=== PATIENT | male | born 1980 | race Asian ===

== ENCOUNTER → 2017-02-09 | Outpatient (REF) | payer OTHER ==
[~2017-02-09] MED LIST: BUPR10TASR PO; GABA-279 PO; OMEP40CA2 PO; ONDA4TAB6 PO; PERC5TAB12 PO
[2017-02-09 11:57] LABS: MEAN CORPUSCULAR HEMOGLOBIN 30.8 pg (27.0-33.0); MEAN CORPUSCULAR HGB CONC 33.3 g/dl (32.0-36.5); MEAN CORPUSCULAR VOLUME 92.4 fl (80.0-96.0); RED CELL DISTRIBUTION WIDTH 12.5 % (11.5-14.5); WHITE BLOOD COUNT 6.7 10^3/uL (4.0-10.0)
[2017-02-09 12:21] LABS: VITAMIN B12 LEVEL 489 PG/ML (247-911)
[2017-02-09 12:33] LABS: ALBUMIN 3.7 GM/DL (3.2-5.2); ALBUMIN/GLOBULIN RATIO 1.03 (1.00-1.93); ALKALINE PHOSPHATASE 85 U/L (45-117); ALT/SGPT 39 U/L (12-78); ANION GAP 5 MEQ/L (8-16); AST/SGOT 24 U/L (15-37); BILIRUBIN,TOTAL 0.3 MG/DL (0.2-1.0); BLOOD UREA NITROGEN 14 MG/DL (7-18); CALCIUM LEVEL 9.2 MG/DL (8.5-10.1); CARBON DIOXIDE LEVEL 32 MEQ/L (21-32); CHLORIDE LEVEL 103 MEQ/L (98-107); CREATININE FOR GFR 0.84 MG/DL (0.70-1.30); GLOMERULAR FILTRATION RATE > 60.0 (>60); GLUCOSE, FASTING 100 MG/DL (70-105); POTASSIUM SERUM 4.6 MEQ/L (3.5-5.1); SODIUM LEVEL 140 MEQ/L (136-145); TOTAL PROTEIN 7.3 GM/DL (6.4-8.2)
== END ==
LOC: M SFHCLERA 09:07
PROVIDERS: ATTEND Physician Assistant
DX: R19.7 Diarrhea, unspecified (principal); R20.2 Paresthesia of skin

== ENCOUNTER → 2017-02-20 | Outpatient (CLI) | payer OTHER ==
--- NOTE | 2017-02-21 05:00 | REP ---
Clinical: Lower extremity paresthesia. Technique: AP, lateral, bilateral oblique and coned-down views of the lumbosacral spine. Findings: No acute fracture / compression injury or subluxation. Alignment is maintained. No significant degenerative disc osteophyte complexes are appreciated. Impression: Age-appropriate lumbosacral spine radiograph series. If the patient remains symptomatic consider MRI for further investigation. Signed by Ramos Nagy MD 02/21/2017 04:52 A
== END ==
LOC: M SMT 13:25
PROVIDERS: ATTEND Physician Assistant Medical
DX: R20.2 Paresthesia of skin (principal)

== ENCOUNTER → 2017-03-16 | Outpatient (CLI) | payer OTHER ==
--- NOTE | 2017-03-16 18:40 | REP ---
MRI LUMBAR SPINE WITHOUT CONTRAST: HISTORY: Paraesthesia. There is no disc bulge or herniation at the L1-2 through L3-4 and L5-S1 levels. The nerves exit the neural foramina without compression. There is partial sacralization of the vertebral body. A diffuse disc bulge is present at the L4-5 level. There is minimal compression of the thecal sac. The L4 nerves exit the neural foramina without compression. The conus medullaris is normal in appearance terminating at the level of the T12-L1 intervertebral discs. Normal signal intensity is present in the lumbar intervertebral discs and vertebral bodies. IMPRESSION: Diffuse disc bulge at the L4-5 level with minimal thecal sac compression. Signed by Sky Kerr MD 03/16/2017 07:10 P
== END ==
LOC: M RAD 16:02
PROVIDERS: ATTEND Physician Assistant Medical
DX: R20.2 Paresthesia of skin (principal); M51.36 Other intervertebral disc degeneration, lumbar region

== ENCOUNTER → 2017-03-21 | Outpatient (CLI) | payer OTHER ==
[~2017-03-21] MED LIST changes: +PROHANCE 279.3MG/ML 15ML VIAL (A9576) As Ordered ONE; +PROHANCE 279.3MG/ML 5ML VIAL (A9576) As Ordered ONE
--- NOTE | 2017-03-21 19:46 | REP ---
MR BRAIN WITHOUT AND WITH CONTRAST: HISTORY: Distal paresthesia. CONTRAST: ProHance 20 mL. COMPARISON: 03/03/2017 There are no areas of abnormal signal intensity in the brain. There is no intraparenchymal hemorrhage, infarct, mass or midline shift. The sella turcica is partially empty. There is no abnormal enhancement. The ventricular system is normal in appearance. There is no extracerebral collection. The sinuses are clear. IMPRESSION: There is no intracranial lesion. Signed by Sky Kerr MD 03/21/2017 07:53 P
== END ==
LOC: M RAD 16:52
PROVIDERS: ATTEND Physician Assistant Medical
DX: R20.2 Paresthesia of skin (principal)
CPT/HCPCS: 70553; A9576

== ENCOUNTER → 2017-04-06 | Outpatient (REF) | payer OTHER ==
[~2017-04-06] MED LIST changes: -PROHANCE 279.3MG/ML 15ML VIAL (A9576) As Ordered ONE; -PROHANCE 279.3MG/ML 5ML VIAL (A9576) As Ordered ONE
[2017-04-06 13:37] LABS: BASO % 0.4 % (0.0-1.0); EOS # 0.1 10^3/uL (0.0-0.50); EOS % 1.8 % (0.0-3.0); IMMATURE GRANULOCYTE % 0.5 % (0-0); LYMPH # 2.3 10^3/uL (1.5-4.5); LYMPH % 39.7 % (24.0-44.0); MEAN CORPUSCULAR HEMOGLOBIN 31.3 pg (27.0-33.0); MEAN CORPUSCULAR HGB CONC 32.8 g/dl (32.0-36.5); MEAN CORPUSCULAR VOLUME 95.4 fl (80.0-96.0); MONO # 0.7 10^3/uL (0.0-0.8); MONO % 12.7 % (0.0-5.0); NEUTROPHILS # 2.6 10^3/uL (1.8-7.7); NEUTROPHILS % 44.9 % (36.0-66.0); PLATELET COUNT, AUTOMATED 235 10^3/uL (150-450); RED CELL DISTRIBUTION WIDTH 13.2 % (11.5-14.5); WHITE BLOOD COUNT 5.7 10^3/uL (4.0-10.0)
[2017-04-06 14:06] LABS: ERYTHROCYTE SEDIMENTATION RATE 10 mm/hr (0-15)
== END ==
LOC: M SFHCPLAZ 12:02
PROVIDERS: ATTEND Physician Assistant Medical
DX: E75.6 Lipid storage disorder, unspecified (principal); K12.0 Recurrent oral aphthae

== ENCOUNTER → 2017-04-26 | Outpatient (CLI) | payer OTHER | LOC: M PAIN 14:00 | DX: G89.29 Other chronic pain (principal); M12.9 Arthropathy, unspecified; K21.9 Gastro-esophageal reflux disease without esophagitis; F41.9 Anxiety disorder, unspecified; G47.33 Obstructive sleep apnea (adult) (pediatric); F43.10 Post-traumatic stress disorder, unspecified; E75.6 Lipid storage disorder, unspecified; Z79.899 Other long term (current) drug therapy; Z87.891 Personal history of nicotine dependence | CPT/HCPCS: G0463 ==

== ENCOUNTER → 2017-05-22 | Outpatient (CLI) | payer OTHER | LOC: M SLEEP 08:44 | DX: R55 Syncope and collapse (principal) ==

== ENCOUNTER → 2017-05-24 | Outpatient (CLI) | payer OTHER | LOC: M PAIN 10:30 | DX: G89.29 Other chronic pain (principal); M12.9 Arthropathy, unspecified; K21.9 Gastro-esophageal reflux disease without esophagitis; F41.9 Anxiety disorder, unspecified; G47.33 Obstructive sleep apnea (adult) (pediatric); F43.10 Post-traumatic stress disorder, unspecified; Z79.891 Long term (current) use of opiate analgesic; Z79.899 Other long term (current) drug therapy; Z87.891 Personal history of nicotine dependence | CPT/HCPCS: G0463 ==

== ENCOUNTER → 2017-06-21 | Outpatient (CLI) | payer OTHER | LOC: M SLEEP 20:03 | DX: G47.30 Sleep apnea, unspecified (principal) | CPT/HCPCS: 95810 ==

== ENCOUNTER → 2017-06-25 | Outpatient (CLI) | payer OTHER | LOC: M PAIN 11:30 | DX: G89.29 Other chronic pain (principal); M12.9 Arthropathy, unspecified; K21.9 Gastro-esophageal reflux disease without esophagitis; F41.9 Anxiety disorder, unspecified; G47.33 Obstructive sleep apnea (adult) (pediatric); F43.10 Post-traumatic stress disorder, unspecified; Z79.891 Long term (current) use of opiate analgesic; Z87.891 Personal history of nicotine dependence | CPT/HCPCS: G0463 ==

== ENCOUNTER → 2017-08-01 | Outpatient (CLI) | payer OTHER | LOC: M SLEEP 19:49 | DX: G47.33 Obstructive sleep apnea (adult) (pediatric) (principal) | CPT/HCPCS: 95811 ==

== ENCOUNTER → 2017-08-06 | Outpatient (CLI) | payer OTHER | LOC: M PAIN 11:00 | DX: M12.9 Arthropathy, unspecified (principal); M25.50 Pain in unspecified joint; K21.9 Gastro-esophageal reflux disease without esophagitis; F41.9 Anxiety disorder, unspecified; G47.33 Obstructive sleep apnea (adult) (pediatric); F43.10 Post-traumatic stress disorder, unspecified; F17.228 Nicotine dependence, chewing tobacco, with other nicotine-induced disorders; Z79.891 Long term (current) use of opiate analgesic; Z79.899 Other long term (current) drug therapy | CPT/HCPCS: G0463 ==

== ENCOUNTER → 2017-08-22 | Outpatient (CLI) | payer OTHER ==
[2017-08-24 00:07] LABS: TISSUE TRANSGLUTAMINASE IgA <2 U/mL (0-3)
== END ==
LOC: M LAB 11:59
DX: R19.7 Diarrhea, unspecified (principal); R12 Heartburn
CPT/HCPCS: 82784

== ENCOUNTER 2017-08-24 11:45 | Day surgery (SDC) | payer OTHER ==
[2017-08-24] MEDS ORDERED: NS 1,000 ML IV (12:45)
[2017-08-24] MEDS ORDERED: LIDOCAINE 2% INJ 100 MG/5 ML SDV (FOR ANES.) As Ordered (13:08)
[2017-08-24] MEDS ORDERED: fentaNYL 100 MCG/2 ML INJECTION (J3010) As Ordered ×2 (13:08→17:07)
[2017-08-24] MEDS ORDERED: PROPOFOL 200 MG/20 ML VIAL As Ordered ×5 (13:08→17:06)
[2017-08-24] MEDS ORDERED: ONDANSETRON 4MG/2ML VIAL (J2405) As Ordered (17:06)
[2017-08-24] MEDS ORDERED: MIDAZOLAM INJ 2 MG/2 ML VIAL (J2250) As Ordered (17:06)
[2017-08-24] MEDS ORDERED: dexameTHASONE 4 MG/ML 1ML VIAL (J1100) As Ordered (17:06)
== END 2017-08-24 14:28 | disposition home or self-care (01) ==
LOC: M OPP 11:45
DX: R10.84 Generalized abdominal pain (principal); R10.13 Epigastric pain; R19.4 Change in bowel habit; M12.9 Arthropathy, unspecified; M35.00 Sjogren syndrome, unspecified; R51 Headache; F17.291 Nicotine dependence, other tobacco product, in remission; G47.30 Sleep apnea, unspecified; Z79.891 Long term (current) use of opiate analgesic; Z79.899 Other long term (current) drug therapy; Z83.3 Family history of diabetes mellitus; Z82.49 Family history of ischemic heart disease and other diseases of the circulatory system
CPT/HCPCS: 45378

== ENCOUNTER → 2017-09-19 | Outpatient (REF) | payer OTHER | LOC: M SMT 13:48 | DX: Z30.2 Encounter for sterilization (principal) | CPT/HCPCS: 88302 ==

== ENCOUNTER → 2017-10-02 | Outpatient (CLI) | payer OTHER ==
[2017-10-02 16:58] LABS: ESTIMATED AVERAGE GLUCOSE 108 MG/DL (60-110); HEMOGLOBIN A1c 5.4 %
[2017-10-02 17:11] LABS: FOLATE 19.9 NG/ML; VITAMIN B12 LEVEL 571 PG/ML
[2017-10-02 17:17] LABS: FREE T4 1.11 NG/DL (0.76-1.46); RHEUMATOID FACTOR QUANT < 10.0 IU/ML (<15.0); THYROID STIMULATING HORMONE 0.527 uIU/ML (0.358-3.740)
[2017-10-02 17:24] LABS: ERYTHROCYTE SEDIMENTATION RATE 7 mm/hr (0-15)
[2017-10-04 14:17] LABS: ANTINUCLEAR ANTIBODIES DIRECT Negative (Negative)
[2017-10-06 00:08] LABS: VITAMIN E(ALPHA TOCOPHEROL) 9.8 mg/L (5.9-19.4); VITAMIN E(GAMMA TOCOPHEROL) 1.9 mg/L (0.7-4.9)
[2017-10-09 00:07] LABS: VITAMIN B6,PYRIDOXAL PHOSPHATE 59.5 ug/L (5.3-46.7)
== END ==
LOC: M LAB 15:57
DX: E06.9 Thyroiditis, unspecified (principal)
CPT/HCPCS: 82746

== ENCOUNTER → 2017-10-11 | Outpatient (CLI) | payer OTHER | LOC: M PAIN 09:15 | DX: M12.9 Arthropathy, unspecified (principal); G89.29 Other chronic pain; K21.9 Gastro-esophageal reflux disease without esophagitis; F41.9 Anxiety disorder, unspecified; G47.33 Obstructive sleep apnea (adult) (pediatric); F43.10 Post-traumatic stress disorder, unspecified; M35.00 Sjogren syndrome, unspecified; Z79.891 Long term (current) use of opiate analgesic; Z79.899 Other long term (current) drug therapy; Z87.891 Personal history of nicotine dependence | CPT/HCPCS: G0463 ==

== ENCOUNTER → 2017-12-10 | Outpatient (REF) | payer OTHER ==
[2017-12-10 17:59] LABS: BASO # 0.1 10^3/uL (0.0-0.2); BASO % 0.8 % (0.0-1.0); EOS # 0.3 10^3/uL (0.0-0.50); EOS % 3.2 % (0.0-3.0); HEMATOCRIT 39.2 % (42.0-52.0); HEMOGLOBIN 13.4 g/dl (13.5-17.5); IMMATURE GRANULOCYTE % 0.4 % (0-3.0); LYMPH # 2.4 10^3/uL (1.5-4.5); LYMPH % 29.2 % (24.0-44.0); MEAN CORPUSCULAR HGB CONC 34.2 g/dl (32.0-36.5); MEAN CORPUSCULAR VOLUME 93.6 fl (80.0-96.0); MONO # 0.7 10^3/uL (0.0-0.8); MONO % 8.7 % (0.0-5.0); NEUTROPHILS # 4.8 10^3/uL (1.8-7.7); NEUTROPHILS % 57.7 % (36.0-66.0); PLATELET COUNT, AUTOMATED 234 10^3/uL (150-450); RED BLOOD COUNT 4.19 10^6/uL (4.30-6.10); WHITE BLOOD COUNT 8.3 10^3/uL (4.0-10.0)
[2017-12-10 18:04] LABS: ALBUMIN 3.6 GM/DL (3.2-5.2); ALKALINE PHOSPHATASE 78 U/L (45-117); ALT/SGPT 42 U/L (12-78); AMYLASE 40 U/L (25-115); ANION GAP 7 MEQ/L (8-16); AST/SGOT 20 U/L (7-37); BILIRUBIN,TOTAL 0.2 MG/DL (0.2-1.0); BLOOD UREA NITROGEN 15 MG/DL (7-18); CALCIUM LEVEL 8.9 MG/DL (8.5-10.1); CARBON DIOXIDE LEVEL 30 MEQ/L (21-32); CHLORIDE LEVEL 106 MEQ/L (98-107); CREATININE FOR GFR 0.98 MG/DL (0.70-1.30); GLOMERULAR FILTRATION RATE > 60.0 (>60); GLUCOSE, FASTING 95 MG/DL (70-100); LIPASE 103 U/L (73-393); POTASSIUM SERUM 4.1 MEQ/L (3.5-5.1); SODIUM LEVEL 143 MEQ/L (136-145); TOTAL PROTEIN 7.2 GM/DL (6.4-8.2)
== END ==
LOC: M SFHCPLAZ 15:27
DX: R11.2 Nausea with vomiting, unspecified (principal); R19.7 Diarrhea, unspecified
CPT/HCPCS: 82150

== ENCOUNTER → 2017-12-18 | Outpatient (REF) | payer OTHER | LOC: M SFHCPLAZ 13:40 | DX: R11.2 Nausea with vomiting, unspecified (principal) | CPT/HCPCS: 87507 ==

== ENCOUNTER → 2018-01-15 | Outpatient (CLI) | payer OTHER | LOC: M PAIN 10:45 | DX: M12.9 Arthropathy, unspecified (principal); G89.29 Other chronic pain; K21.9 Gastro-esophageal reflux disease without esophagitis; F41.9 Anxiety disorder, unspecified; G47.33 Obstructive sleep apnea (adult) (pediatric); E75.6 Lipid storage disorder, unspecified; M35.00 Sjogren syndrome, unspecified; H53.8 Other visual disturbances; Z79.891 Long term (current) use of opiate analgesic; Z79.899 Other long term (current) drug therapy; Z86.79 Personal history of other diseases of the circulatory system; Z87.891 Personal history of nicotine dependence | CPT/HCPCS: G0463 ==

== ENCOUNTER → 2018-01-23 | Outpatient (CLI) | payer OTHER | LOC: M CARPUL 13:08 | DX: R06.02 Shortness of breath (principal) | CPT/HCPCS: 94060 ==

== ENCOUNTER → 2018-02-20 | Outpatient (REF) | LOC: M SMT 13:15 | DX: Z02.71 Encounter for disability determination (principal) ==

== ENCOUNTER → 2018-06-04 | Outpatient (CLI) | payer OTHER ==
[~2018-06-04] MED LIST changes: +AMIT50TA PO; +BUPR1TAB53 PO; +DICL50TAB PO; +DULO1CAP3 PO; +FOLI1TAB11 PO; +GABA-1171 PO; -GABA-279 PO; +GABA-845 PO; +GABA250S6 PO; +LORA1TAB12; +METH2.5T48 PO; +METH50IN8 IM; +MORP30TASA PO; +NICO2LOZ MT; +NORC7.5T35 PO; +TIZA2CAP PO; +[UNRECOGNIZED DRUG - REMARK]; +dry eye drops; +foot cream; +nicotine gum
--- NOTE | 2018-06-17 00:29 | ECWPNPC ---
PATIENT NAME: DEIRDRE DUBOSE : 1980 GENDER: MALE VISIT DATE: 06/04/2018 DISCHARGE DATE: 06/04/18 1507 VISIT LOCKED DATE TIME: PHYSICIAN: FRANSICO BLACK PHYSICIAN PAGER NO: [phone] RESOURCE: FRANSICO BLACK REASON FOR APPOINTMENT 1. BACK HISTORY OF PRESENT ILLNESS HISTORY OF PRESENT ILLNESS: HERE FOR ROUTINE F/U AND MEDICINE MANAGEMENT OF CHRONIC GENERALIZED JOINT PAIN ASSOCIATED WITH INFLAMMATORY ARTHROPATHY W HX OF RHEUMATOID ARTHRITIS AND SJOGRENS SYNDROME.RATING PAIN VAS 5/10.REPORTING NEW ONSET OF LEFT THIGH NUMBNESS. PAIN THE PATIENT DESCRIBES THE PAIN... FALL RISK SCREENING: SCREENING :NO FALLS IN THE PAST YEAR CURRENT MEDICATIONS TAKING BUPROPION HCL ER (XL) 300 MG TABLET EXTENDED RELEASE 24 HOUR 1 TABLET IN THE MORNING ORALLY ONCE A DAY TAKING DULOXETINE HCL 60 MG CAPSULE DELAYED RELEASE PARTICLES 1 CAPSULE ORALLY ONCE A DAY TAKING AMITRIPTYLINE HCL 50 MG TABLET 1 TABLET ORALLY ONCE A DAY TAKING GNP NICOTINE POLACRILEX 2 MG GUM 1 PIECE NEEDED MOUTH/THROAT 24 TIME(S) A DAY TAKING TRIAMCINOLONE ACETONIDE 0.1 % PASTE 1 APPLICATION TO CANKER SORES MOUTH/THROAT BEFORE BEDTIME TAKING METHOTREXATE 2.5 MG/ML SOLUTION 1 10CC INJECTION ORALLY WEEKLY TAKING FOLIC ACID 1 MG TABLET 1 TABLET ORALLY ONCE A DAY TAKING OMEPRAZOLE 40 MG CAPSULE DELAYED RELEASE 1 CAPSULE ORALLY BID TAKING SIMETHICONE 180 MG CAPSULE 1 CAPSULE AFTER MEALS AND AT BEDTIME NEEDED ORALLY TWICE A DAY TAKING LORAZEPAM 1MG ORAL DAILY TAKING COLACE 100 MG CAPSULE 1 CAPSULE NEEDED ORALLY BID TAKING TIZANIDINE HCL 4 MG TABLET 1 TABLET NEEDED ORALLY THREE TIMES A DAY TAKING GABAPENTIN 600 MG TABLET 1 TABLET ORALLY Q8H TID TAKING DICLOFENAC SODIUM 50 MG TABLET DELAYED RELEASE 1 TABLET WITH FOOD OR MILK ORALLY THREE TIMES A DAY TAKING ZOFRAN ODT 4 MG TABLET DISPERSIBLE 1 TABLET ON THE TONGUE AND ALLOW TO DISSOLVE ORALLY EVERY 8 HRS TAKING SHINGRIX 50 MCG/0.5ML SUSPENSION RECONSTITUTED DIRECTED INTRAMUSCULAR DIRECTED; M06.041 SOON TO START HUMIRA TAKING NORCO 7.5-325 MG TABLET 1 TABLET NEEDED ORALLY EVERY 6 HRS PRN MDD4 TAKING MS CONTIN 30 MG TABLET EXTENDED RELEASE 1 TABLET ORALLY EVERY 12 HRS MDD2 NOT-TAKING MORPHINE SULFATE ER 30 MG TABLET EXTENDED RELEASE 1 TABLET ORALLY EVERY 12 HRS MDD2, NOTES: DUPLICATE MEDICATION LIST REVIEWED AND RECONCILED WITH THE PATIENT PAST MEDICAL HISTORY ANXIETY GERD BINH SISTER C RECESSIVE TRAIT OF MPS G1 GENETIC LIPID STORAGE DISORDER SYNCOPE PTSD-[facility] @ [facility]. [facility] [place]; FEET-DR. ROSAS VISUAL SNOW SYNDROME SJOROGEN SYNDROME ARTHRITIS IN BACK ALLERGIES N.K.JimboA. SURGICAL HISTORY VASECTOMY 09/19/2017 COLONOSCOPY -- [facility] 09/2017 FAMILY HISTORY FATHER: ALIVE, DIAGNOSED WITH DIABETES, HYPERTENSION, HEART DISEASE MOTHER: ALIVE, DIAGNOSED WITH HYPERTENSION SIBLINGS: ALIVE, DIAGNOSED WITH OTHER SON(S): ALIVE DAUGHTER(S): ALIVE 2 BROTHER(S) , 1 SISTER(S) - HEALTHY. 2 SON(S) , 1 DAUGHTER(S) - HEALTHY. FATHER- KIDNEY FAILURE STAGE 5NO FAMILY H/O MS FATHER- KIDNEY FAILURE STAGE 4NO FAMILY H/O MS. SOCIAL HISTORY GENERAL: TOBACCO USE ARE YOU A:FORMER SMOKER STARTED SMOKING IN TEENAGE YEARS AND QUIT 2018. SMOKED 5 CIGARETTES PER DAY HOW LONG HAS IT BEEN SINCE YOU LAST SMOKED?< 1 MONTH SMOKING CESSATION INFORMATION GIVEN04/26/2017 CURRENTLY CHEWING NICOTINE GUM ALCOHOL SCREENING DID YOU HAVE A DRINK CONTAINING ALCOHOL IN THE PAST YEAR?NO POINTS0 INTERPRETATIONNEGATIVE RECREATIONAL DRUG USE DRUG USE?NO CAFFEINE CAFFEINE USE?YES ENERGY DRINKS = 2 PER DAY TEA = A COUPLE GLASSES PER DAY COFFEE = 1 CUP PER DAY SEXUAL HX HAD SEX IN THE LAST 12 MONTHS (VAGINAL, ORAL, OR ANAL)?YES WITHWOMEN ONLY USE PROTECTION?NO HAVE YOU EVER HAD AN STD?NO HIV / HEP-C SCREENING HIV TEST OFFERED TO PATIENT:YES DATE OFFERED:07/18/2017 TEST ACCEPTED:NO HEP-C TEST OFFERED TO PATIENT:YES DATE OFFERED:07/18/2017 REASON:PATIENT DECLINED TEST ACCEPTED:NO REASON:PATIENT DECLINED BROCHURE PROVIDED TO PATIENTNO QUAKER [id number] GNOSTICIST NO MU-ISM BELIEFS THAT WOULD IMPACT HEALTH CARE. LANGUAGE LANGUAGES SPOKEN:LIBERIAN EDUCATION LEVEL OF EDUCATION:NOT FINISHED COLLEGE LEARNING BARRIERS / SPECIAL NEEDS CHANGE FROM LAST VISIT?YES MRI IMAGING BARRIERS TO LEARNING?NO HEARING IMPAIRED?YES TINNITUS BILATERAL VISION IMPAIRED?YES VISUAL SNOW SYNDROME :CORRECTIVE LENSES COGNITIVELY IMPAIRED?NO READINESS TO LEARN?YES LEARNING PREFERENCES?NO LEARNING CAPABILITIES PRESENT?YES EMOTIONAL BARRIERS?NO SPECIAL DEVICES?YES :CANE RN PEDIATRIC NEEDED?NO DOMESTIC VIOLENCE DO YOU FEEL SAFE IN YOUR ENVIRONMENT?YES OCCUPATION: [employer]. DIET: REGULAR. EXERCISE: NONE "NOT ANYMORE". MARITAL STATUS: . OTHERS AT HOME: CHILDREN. PAIN CLINIC PFS, CLERGY, PUBLIC HEALTH REFERRALS PFS REFERRAL NEEDED?NO CLERGY REFERRAL NEEDED?NO PUBLIC HEALTH REFERRAL NEEDED?NO WAS THE PROVIDER NOTIFIED OF ANY PERTINENT INFO?NO N/A HAS THE PATIENT BEEN EDUCATED REGARDING HIS/HER PLAN OF CARE?YES HAS THE PATIENT BEEN EDUCATED REGARDING PAIN, THE RISK FOR PAIN, THE IMPORTANCE OF EFFECTIVE PAIN MANAGEMENT, AND THE PAIN ASSESSMENT PROCESS?YES HOUSING: RENTS APARTMENT. ADVANCE DIRECTIVE ADVANCE DIRECTIVE DISCUSSED WITH PATIENT:YES DECLINED HCP INFORMATION AT THIS TIME. 10/11/17 1000 REVIEWED WITH PT AD01/15/18 1120 REVIEWED WITH PT BVREVIEWED WITH PATIENT 06/04/18 1406 JS. HOSPITALIZATION/MAJOR DIAGNOSTIC PROCEDURE SLEEP STUDY REVIEW OF SYSTEMS REVIEWED BY: PROVIDER: FRANSICO SAUNDERS . CONSTITUTIONAL: ANY CHANGE IN YOUR MEDICAL CONDITION? YES, MRI SHOWED ARTHRITIS IN BACK . CHILLS NO . FEVER NO . INFECTION: DO YOU HAVE NEW INFECTIONS? NO . DO YOU HAVE HISTORY OF MRSA? NO . MUSCULOSKELETAL: ANY NEW PATTERNS OF PAIN OR NUMBNESS? YES, NUMBNESS AND TINGLING TO THIGH . GASTROENTEROLOGY: ANY NEW CHANGE IN BOWEL CONTROL? NO . GENITOURINARY: ANY NEW CHANGE IN BLADDER CONTROL? NO . IS THERE A CHANCE YOU COULD BE ? NO . HEMATOLOGY/LYMPH: DO YOU TAKE ANY BLOOD THINNERS? (FOR EXAMPLE- COUMADIN, PLAVIX, AGGRENOX, PLATEL, PRADAXA, OR XARELTO) NO . WHEN WAS YOUR LAST DOSE? DATE: TIME: . NEUROLOGY: HAVE YOU FALLEN IN THE PAST 12 MONTHS? NO . ANY NEW EXTREMITY NUMBNESS OR WEAKNESS? YES, LEFT THIGH TINGLING AND NUMBNESS . CARDIOLOGY: DO YOU HAVE A PACEMAKER OR DEFIBRILLATOR? NO . RESPIRATORY: HAVE YOU BEEN SICK IN THE PAST WEEK? NO . FEVER NO . FLU LIKE SYMPTOMS? NO . COUGH NO . INTEGUMENTARY: DO YOU HAVE ANY RASHES OR OPEN SORES? NO . ALLERGIC/IMMUNO: ARE YOU ALLERGIC TO IV DYE? NO . ANY NEW ALLERGIES? NO . PSYCHIATRIC: DO YOU HAVE THOUGHTS OF HURTING YOURSELF OR SOMEONE ELSE? NO . ARE YOU ABUSED, NEGLECTED, OR IN AN UNSAFE ENVIRONMENT? NO . ENDOCRINOLOGY: ARE YOU DIABETIC? NO . OTHER: DO YOU NEED ANY PRESCRIPTIONS? YES . IF YES, PLEASE LIST: ____TIZANIDINE, GABAPENTIN . ANY NEW PROBLEMS WITH YOUR MEDICATIONS? NO . WHEN DID YOU LAST EAT? ____ . WHEN DID YOU LAST DRINK? ____ . WHAT DID YOU LAST DRINK? ____ . NAME OF PERSON DRIVING YOU HOME? ____ . DO YOU HAVE ANY OTHER QUESTIONS OR CONCERNS FLU VACCINE LAST WEEK . VITAL SIGNS WT 291 LBS, HT 70 IN, BMI 41.75 INDEX, BP 137/93 MM HG, HR 86 /MIN, RR 18 /MIN, TEMP 98.1 F, OXYGEN SAT % 97%, SAFE IN ENV? (Y/N) YES, NA INITIALS SC 14:05, REVIEWED BY: SKYLER. EXAMINATION GENERAL EXAMINATION: GENERAL APPEARANCE:ALERT,NO DISTRESS . PSYCHAFFECT NORMAL . LUNGS:LUNG SOUNDS ARE CLEAR . HEART:HEART RATE REGULAR . MUSCULOSKELETAL:MST 5/5 BILAT. LOWER EXTREMITIES . LUMBAR SACRAL SPINE TENDERNESS OVER LEFT SIJ . DIAGNOSTIC TESTS REVIEWEDMRI L/S [id number] . ASSESSMENTS SACROILIITIS - M46.1 (PRIMARY) TREATMENT SACROILIITIS REFILL NORCO TABLET, 7.5-325 MG, 1 TABLET NEEDED, ORALLY, EVERY 6 HRS PRN MDD4, 30 DAY(S), 45, REFILLS 0 REFILL MS CONTIN TABLET EXTENDED RELEASE, 30 MG, 1 TABLET, ORALLY, EVERY 12 HRS MDD2, 30 DAY(S), 60, REFILLS 0 REFILL GABAPENTIN TABLET, 600 MG, 1 TABLET, ORALLY, Q8H TID, 30 DAY(S), 90, REFILLS 2 REFILL TIZANIDINE HCL TABLET, 4 MG, 1 TABLET NEEDED, ORALLY, THREE TIMES A DAY, 30 DAY(S), 90 TABLET, REFILLS 2 REFILL COLACE CAPSULE, 100 MG, 1 CAPSULE NEEDED, ORALLY, BID, 30 DAY(S), 60 CAPSULE, REFILLS 2 NOTES: LEFT SIJSTOP METHOTREXATE 10 DAYS PRE PROCEDURE/RESTART 4 DAYS POST, ISTOP REGISTRY REVIEWED AND DEMONSTRATES COMPLLIANCE. (REF # [id number] ) BRINGS IN MEDICATIONS WHICH IS APPROPRIATE FOR WHAT WAS DISPENSED. RECENT URINE TOXICOLOGY REVIEWED. NO UNAUTHORIZED MEDICATIONS. NO ILLICIT SUBSTANCES AND PRESCRIBED MEDICATIONS WERE PRESENT. , RISKS AND BENEFITS OF NARCOTIC/OPIOD MEDICATIONS WERE REVIEWED WITH PATIENT - THIS INCLUDES BUT IS NOT LIMITED TO RISK OF DEPENDANCE/DEVELOPMENT OF ADDICTION, MOOD DISTURBANCE AND DEPRESSION, OSTEOPOROSIS, HORMONAL AND LABIDAL CHANGES, RESPIRATORY DEPRESSION AND . PATIENT IS ADVISED NOT TO DRIVE OR DRINK ALCOHOL WHILE ON THESE MEDICATIONS. PREVENTIVE MEDICINE PAIN CLINIC TEACHING: PROCEDURE TEACHING PATIENT GIVEN PRINTED INFORMATION ON SACROILIAC JOINT INJECTION AND REVIEWED PROCEDURE WITH PATIENT. ALSO REVIEWED PRE-PROCEDURE INSTRUCTIONS, INCLUDING NO IMMUNIZATIONS WITH 21 DAYS OF PROCEDURE AND HOLDING METHOTREXATE PRIOR TO PROCEDURE. PATIENT VERBALIZED AN UNDERSTANDING. ABHISHEK RIOS 06/04/2018 4:30:18 PM > . PROCEDURE CODES FA211 ESTABILISHED PATIENT [facility] CHARGE DISPOSITION & COMMUNICATION FOLLOW UP POST PROC (REASON: LEFT SIJ) ELECTRONICALLY SIGNED BY NICKY MORENO ON 06/16/2018 AT 02:30 PM EST DISCLAIMER : THIS IS A VISIT SUMMARY EXTRACTED FROM THE [employer] CHART. IT IS NOT A COPY OF THE [employer] PROGRESS NOTE. JORDYN
== END ==
LOC: M PAIN 13:30
PROVIDERS: ATTEND Nurse Practitioner Family
DX: M46.1 Sacroiliitis, not elsewhere classified (principal); F41.9 Anxiety disorder, unspecified; K21.9 Gastro-esophageal reflux disease without esophagitis; G47.33 Obstructive sleep apnea (adult) (pediatric); F43.10 Post-traumatic stress disorder, unspecified; M06.9 Rheumatoid arthritis, unspecified; M35.00 Sjogren syndrome, unspecified; Z87.891 Personal history of nicotine dependence; Z79.899 Other long term (current) drug therapy

== ENCOUNTER → 2018-10-29 | Outpatient (CLI) | payer OTHER ==
[~2018-10-29] MED LIST changes: +BUPIVACAINE HCL 0.25% 30 ML VIAL As Ordered ONE; +ISOVUE-M 300 61% 15ML VIAL (Q9967) As Ordered ONE; +LIDOCAINE 1% SDV INJ 30 ML VIAL As Ordered ONE; +NORC1TAB8 PO; -NORC7.5T35 PO; +TRIAMCINOLONE ACETONIDE SUSP 40 MG/ML VIAL (J3301) As Ordered ONE; +diazePAM 5 MG TAB As Ordered ONE; +oxyCODONE 5MG TAB As Ordered ONE
--- NOTE | 2018-10-30 08:11 | REP ---
SI JOINT SERIES: Limited study four views. HISTORY: Left SI joint injection for pain. FINDINGS: A sequence of four last image hold fluoroscopically obtained spot radiographs of the left SI joint document various needle positions. 17 seconds of fluoroscopy time is reported. Electronically Signed by Washington Cook MD 10/30/2018 10:16 A
--- NOTE | 2018-11-07 00:58 | ECWPNPC ---
PATIENT NAME: DEIRDRE DUBOSE : 1980 GENDER: MALE VISIT DATE: 10/29/2018 DISCHARGE DATE: 10/29/181644 VISIT LOCKED DATE TIME: PHYSICIAN: AMOS MATTSON MD PHYSICIAN PAGER NO: [phone] RESOURCE: AMOS MATTSON MD REASON FOR APPOINTMENT 1. LEFT SIJ HISTORY OF PRESENT ILLNESS HISTORY OF PRESENT ILLNESS: PAIN THE PATIENT DESCRIBES THE PAIN... FALL RISK SCREENING: SCREENING :NO FALLS REPORTED IN THE LAST YEAR CURRENT MEDICATIONS TAKING MS CONTIN 30 MG TABLET EXTENDED RELEASE 1 TABLET ORALLY EVERY 12 HRS MDD2, NOTES: 10/29/18 0800 TAKING DICLOFENAC SODIUM 50 MG TABLET DELAYED RELEASE 1 TABLET WITH FOOD OR MILK ORALLY THREE TIMES A DAY, NOTES: 10/29/18 08 TAKING BUPROPION HCL ER (XL) 300 MG TABLET EXTENDED RELEASE 24 HOUR 1 TABLET IN THE MORNING ORALLY ONCE A DAY, NOTES: 10/29/18 08 TAKING DULOXETINE HCL 60 MG CAPSULE DELAYED RELEASE PARTICLES 1 CAPSULE ORALLY ONCE A DAY, NOTES: 10/28/18 230 TAKING AMITRIPTYLINE HCL 50 MG TABLET 1 TABLET ORALLY ONCE A DAY, NOTES: 10/28/18 230 TAKING GNP NICOTINE POLACRILEX 2 MG GUM 1 PIECE NEEDED MOUTH/THROAT 24 TIME(S) A DAY, NOTES: NONE TODAY TAKING TRIAMCINOLONE ACETONIDE 0.1 % PASTE 1 APPLICATION TO CANKER SORES MOUTH/THROAT BEFORE BEDTIME NEEDED, NOTES: NONE RECENTLY TAKING FOLIC ACID 1 MG TABLET 1 TABLET ORALLY ONCE A DAY, NOTES: NONE RECENTLY TAKING OMEPRAZOLE 40 MG CAPSULE DELAYED RELEASE 1 CAPSULE ORALLY BID, NOTES: 10/28/18 230 TAKING SIMETHICONE 180 MG CAPSULE 1 CAPSULE AFTER MEALS AND AT BEDTIME NEEDED ORALLY TWICE A DAY, NOTES: NONE RECENTLY TAKING LORAZEPAM 1MG ORAL DAILY, NOTES: 10/28/18 0800 TAKING ZOFRAN ODT 4 MG TABLET DISPERSIBLE 1 TABLET ON THE TONGUE AND ALLOW TO DISSOLVE ORALLY EVERY 8 HRS, NOTES: NONE RECENTLY TAKING SHINGRIX 50 MCG/0.5ML SUSPENSION RECONSTITUTED DIRECTED INTRAMUSCULAR DIRECTED; M06.041 SOON TO START HUMIRA, NOTES: NOT YET RECEIVED TAKING COLACE 100 MG CAPSULE 1 CAPSULE NEEDED ORALLY BID, NOTES: NONE RECENTLY TAKING METHOTREXATE 2.5 MG/ML SOLUTION 1 10CC INJECTION ORALLY WEEKLY, NOTES: 2-3 MONTHS AGO TAKING TIZANIDINE HCL 4 MG TABLET 1 TABLET NEEDED ORALLY THREE TIMES A DAY, NOTES: 10/29/18 0800 TAKING GABAPENTIN 600 MG TABLET 1 TABLET ORALLY Q8H TID, NOTES: 10/29/18 0800 TAKING NORCO 7.5-325 MG TABLET 1 TABLET NEEDED ORALLY EVERY 6 HRS PRN MDD4, NOTES: 10/28/18 1900 NOT-TAKING MORPHINE SULFATE ER 30 MG TABLET EXTENDED RELEASE ABUSE-DETERRENT 1 TABLET ORALLY EVERY 12 HRS NOT-TAKING MORPHINE SULFATE ER 30 MG TABLET EXTENDED RELEASE 1 TABLET ORALLY EVERY 12 HRS MDD2, NOTES: DUPLICATE MEDICATION LIST REVIEWED AND RECONCILED WITH THE PATIENT PAST MEDICAL HISTORY ANXIETY GERD BINH SISTER C RECESSIVE TRAIT OF MPS G1 GENETIC LIPID STORAGE DISORDER SYNCOPE PTSD-MARLYN @ [facility]. [facility] [place]; FEET-DR. ROSAS VISUAL SNOW SYNDROME SJOROGEN SYNDROME ARTHRITIS IN BACK DEGENERATIVE DISC DISEASE ALLERGIES N.K.D.A. SURGICAL HISTORY VASECTOMY 09/19/2017 COLONOSCOPY -- [facility] 09/2017 FAMILY HISTORY FATHER: ALIVE, DIAGNOSED WITH DIABETES, HYPERTENSION, HEART DISEASE MOTHER: ALIVE, HYPERTENSION SIBLINGS: ALIVE, OTHER SON(S): ALIVE DAUGHTER(S): ALIVE 2 BROTHER(S) , 1 SISTER(S) - HEALTHY. 2 SON(S) , 1 DAUGHTER(S) - HEALTHY. FATHER- KIDNEY FAILURE STAGE 5NO FAMILY H/O MS FATHER- KIDNEY FAILURE STAGE 4NO FAMILY H/O MS. SOCIAL HISTORY GENERAL: TOBACCO USE ARE YOU A:CURRENT SMOKER STARTED SMOKING IN TEENAGE YEARS AND QUIT 2017. SMOKED 5 CIGARETTES PER DAY ARE YOU INTERESTED IN QUITTING?THINKING ABOUT QUITTING PREVIOUS QUIT ATTEMPTS?YES, WITHIN THE LAST 6 MONTHS. COUNSELED THE PATIENT ON SMOKING CESSATION, EDUCATION UKHALPBI41/25/2019 SMOKING CESSATION INFORMATION GIVEN10/29/2018 HIV / HEP-C SCREENING HIV TEST OFFERED TO PATIENT:YES DATE OFFERED:07/18/2017 TEST ACCEPTED:NO REASON:PATIENT DECLINED BROCHURE PROVIDED TO PATIENTNO HEP-C TEST OFFERED TO PATIENT:YES DATE OFFERED:07/18/2017 TEST ACCEPTED:NO REASON:PATIENT DECLINED OTHERS AT HOME: CHILDREN. HOUSING: RENTS APARTMENT. EDUCATION LEVEL OF EDUCATION:NOT FINISHED COLLEGE DIET: REGULAR. LANGUAGE LANGUAGES SPOKEN:PRYDEINIG DOMESTIC VIOLENCE DO YOU FEEL SAFE IN YOUR ENVIRONMENT?YES RECREATIONAL DRUG USE DRUG USE?NO EXERCISE: NONE "NOT ANYMORE". LEARNING BARRIERS / SPECIAL NEEDS CHANGE FROM LAST VISIT?YES MRI IMAGING BARRIERS TO LEARNING?NO HEARING IMPAIRED?YES TINNITUS BILATERAL VISION IMPAIRED?YES VISUAL SNOW SYNDROME :CORRECTIVE LENSES COGNITIVELY IMPAIRED?NO READINESS TO LEARN?YES LEARNING PREFERENCES?NO LEARNING CAPABILITIES PRESENT?YES EMOTIONAL BARRIERS?NO SPECIAL DEVICES?YES :CANE GLOVE TURNER AND FORMER NEEDED?NO PAIN CLINIC PFS, CLERGY, PUBLIC HEALTH REFERRALS PFS REFERRAL NEEDED?NO CLERGY REFERRAL NEEDED?NO PUBLIC HEALTH REFERRAL NEEDED?NO WAS THE PROVIDER NOTIFIED OF ANY PERTINENT INFO?NO N/A HAS THE PATIENT BEEN EDUCATED REGARDING HIS/HER PLAN OF CARE?YES HAS THE PATIENT BEEN EDUCATED REGARDING PAIN, THE RISK FOR PAIN, THE IMPORTANCE OF EFFECTIVE PAIN MANAGEMENT, AND THE PAIN ASSESSMENT PROCESS?YES LATEX QUESTIONNAIRE LATEX ALLERGY : HAVE YOU EVER DEVELOPED ANY TYPE OF REACTION AFTER HANDLING LATEX PRODUCTS SUCH RUBBER GLOVES, CONDOMS, DIAPHRAGMS, BALLOONS, SOCKS, OR UNDERWEAR?NO LATEX ALLERGY : HAVE YOU EVER DEVELOPED ANY TYPE OF REACTION DURING OR AFTER DENTAL APPOINTMENT, VAGINAL/RECTAL EXAMINATION, SURGICAL PROCEDURE, OR ANY OTHER EXPOSURE?NO LATEX RISK : HAVE YOU EVER HAD ANY DIFFICULTY BREATHING OR HIVES AFTER EATING OR HANDLING ANY FRUITS, OR VEGETABLES; SUCH KIWI, BANANAS, STONE FRUITS, OR CHESTNUTSNO LATEX RISK : DO YOU HAVE A PREVIOUS PERSONAL HISTORY OF MORE THAN NINE SURGERIES, SPINA BIFIDA, OR REPEATED CATHERTIZATIONS? NO LATEX RISK : ARE YOU FREQUENTLY EXPOSED TO LATEX PRODUCTS IN YOUR OCCUPATION?NO DATE ASKED : 10/29/2018 CAFFEINE CAFFEINE USE?YES ENERGY DRINKS = 2 PER DAY TEA = A COUPLE GLASSES PER DAY COFFEE = 1 CUP PER DAY ADVANCE DIRECTIVE ADVANCE DIRECTIVE DISCUSSED WITH PATIENT:YES PATIENT GIVEN HCP INFORMATION AT THIS TIME, DECLINED ASSISTANCE IN FILLING THE FORM AT THIS TIME. BAPTISM [id number] JUDAISM NO SCIENTOLOGY BELIEFS THAT WOULD IMPACT HEALTH CARE. MARITAL STATUS: . ALCOHOL SCREENING DID YOU HAVE A DRINK CONTAINING ALCOHOL IN THE PAST YEAR?NO POINTS0 INTERPRETATIONNEGATIVE OCCUPATION: [employer]. SEXUAL HX HAD SEX IN THE LAST 12 MONTHS (VAGINAL, ORAL, OR ANAL)?YES WITHWOMEN ONLY USE PROTECTION?NO HAVE YOU EVER HAD AN STD?NO 10/11/17 1000 REVIEWED WITH PT AD01/15/18 1120 REVIEWED WITH PT BVREVIEWED WITH PATIENT 06/04/18 1406 JSREVIEWED WITH PATIENT 10/29/18 1448 JS. HOSPITALIZATION/MAJOR DIAGNOSTIC PROCEDURE SLEEP STUDY REVIEW OF SYSTEMS REVIEWED BY: PROVIDER: . CONSTITUTIONAL: ANY CHANGE IN YOUR MEDICAL CONDITION? NO . CHILLS NO . FEVER NO . INFECTION: DO YOU HAVE NEW INFECTIONS? NO . DO YOU HAVE HISTORY OF MRSA? NO . MUSCULOSKELETAL: ANY NEW PATTERNS OF PAIN OR NUMBNESS? NO . GASTROENTEROLOGY: ANY NEW CHANGE IN BOWEL CONTROL? NO . GENITOURINARY: ANY NEW CHANGE IN BLADDER CONTROL? NO . IS THERE A CHANCE YOU COULD BE ? NO . HEMATOLOGY/LYMPH: DO YOU TAKE ANY BLOOD THINNERS? (FOR EXAMPLE- COUMADIN, PLAVIX, AGGRENOX, PLATEL, PRADAXA, OR XARELTO) NO . WHEN WAS YOUR LAST DOSE? DATE: TIME: . NEUROLOGY: HAVE YOU FALLEN IN THE PAST 12 MONTHS? NO . ANY NEW EXTREMITY NUMBNESS OR WEAKNESS? NO . CARDIOLOGY: DO YOU HAVE A PACEMAKER OR DEFIBRILLATOR? NO . RESPIRATORY: HAVE YOU BEEN SICK IN THE PAST WEEK? NO . FEVER NO . FLU LIKE SYMPTOMS? NO . COUGH NO . INTEGUMENTARY: DO YOU HAVE ANY RASHES OR OPEN SORES? NO . ALLERGIC/IMMUNO: ARE YOU ALLERGIC TO IV DYE? NO . ANY NEW ALLERGIES? NO . PSYCHIATRIC: DO YOU HAVE THOUGHTS OF HURTING YOURSELF OR SOMEONE ELSE? NO . ARE YOU ABUSED, NEGLECTED, OR IN AN UNSAFE ENVIRONMENT? NO . ENDOCRINOLOGY: ARE YOU DIABETIC? NO . OTHER: DO YOU NEED ANY PRESCRIPTIONS? NO . IF YES, PLEASE LIST: ____ . ANY NEW PROBLEMS WITH YOUR MEDICATIONS? NO . WHEN DID YOU LAST EAT? 10-28-18 2200 . WHEN DID YOU LAST DRINK? 10-29-18 1000 . WHAT DID YOU LAST DRINK? RED BULL AND WATER . NAME OF PERSON DRIVING YOU HOME? ____ . DO YOU HAVE ANY OTHER QUESTIONS OR CONCERNS NO . VITAL SIGNS WT 291.4 LBS, HT 70 IN, BMI 41.81 INDEX, BP 141/75 MM HG, HR 85 /MIN, RR 18 /MIN, TEMP 98.1 F, OXYGEN SAT % 97%, SAFE IN ENV? (Y/N) YES, NA INITIALS AW 1328, REVIEWED BY: JS. ASSESSMENTS SACROILIITIS - M46.1 (PRIMARY) TREATMENT SACROILIITIS [facility] FLUORO GUIDANCE (PAIN)[id number] PROCEDURES PN SI PRE PROCEDURE DIAGNOSIS SACROILIITIS, SACROILIAC JOINT DYSFUNCTION POST PROCEDURE DIAGNOSIS SACROILIITIS, SACROILIAC JOINT DYSFUNCTION PROCEDURE LEFT SACROILIAC JOINT BLOCK SURGEON DR. AMOS MATTSON OB/GYN NURSE NONE ANESTHESIA LOCAL PRE PROCEDURE NOTE PATIENT WITH HISTORY OF CHRONIC LOW BACK PAIN. I EVALUATED THE PATIENT AND REVIEWED THE CHART. I WENT OVER THE RISKS, ALTERNATIVES, AND BENEFITS ASSOCIATED WITH THIS PROCEDURE. THE PATIENT WOULD LIKE TO PROCEED AND GAVE CONSENT TO PERFORM THE PROCEDURE. THE PATIENT DENIES UNEXPLAINABLE WEIGHT LOSS, FEVER, CHILLS, OR NEW CHANGES IN URINARY OR BOWEL CONTROL DESCRIPTION OF PROCEDURE THE PATIENT WAS BROUGHT TO THE PROCEDURE ROOM AND PLACED IN THE PRONE POSITION. THE LUMBOSACRAL AREA WAS CLEANED WITH CHLORAPREP SOLUTION AND DRAPED ASEPTICALLY. THE PROCEDURE WAS DONE UNDER STERILE CONDITIONS. I CHECKED LATERALITY AND THE LEVEL WHERE THE PROCEDURE WAS GOING TO BE PERFORMED WITH THE PATIENT AND THE SUPPORTING STAFF AT THE MOMENT OF THE TIME OUT IN THE PROCEDURE ROOM. UNDER FLUOROSCOPIC GUIDANCE, TARGET POINT WAS SELECTED AT THE LOWER BORDER OF THE LEFT SACROILIAC JOINT. TARGET POINT WAS SELECTED AFTER MEDIAL ROTATION AND TILT OF THE MAGNIFIER OF THE C-ARM. LIDOCAINE WAS USED TO NUMB THE SKIN AND SUBCUTANEOUS TISSUE BELOW IT. A SPINAL NEEDLE, 22-GAUGE, WAS ADVANCED UNDER FLUOROSCOPIC GUIDANCE AND FOLLOWING PATIENT FEEDBACK UNTIL THE TARGET AREA WAS TOUCHED. THE POSITION OF THE NEEDLE WAS VERIFIED WITH AP AND LATERAL VIEWS. AFTER PROPER POSITION OF THE NEEDLE WAS ACHIEVED, ISOVUE M DYE 30%, 0.25 ML, WAS INJECTED SHOWING SPREAD OF THE DYE. THEN, A SOLUTION OF 20 MG OF KENALOG WAS INJECTED IN LEFT JOINT WITH 3 ML OF BUPIVACAINE 0.125%. THERE WAS NO EVIDENCE OF BLOOD, PARESTHESIA OR CEREBROSPINAL FLUID DURING THE PROCEDURE. THE PATIENT WAS SENT TO THE RECOVERY ROOM. THE PATIENT WAS MOVING THE EXTREMITIES AND DOING WELL. THERE WAS NO COMPLICATION DURING THE PROCEDURE. FLUOROSCOPY TIME WAS 17 SECONDS POST PROCEDURE NOTE THE PATIENT WILL BE SEEN IN A FOLLOW UP IN THE NEXT FEW WEEKS. INSTRUCTIONS WERE GIVEN, QUESTIONS WERE ANSWERED, AND THE PATIENT EXPRESSED UNDERSTANDING AND AGREED WITH THE PLAN. I, CURRY CALLAWAY, DOCUMENTED THE ABOVE INFORMATION ACTING A SCRIBE FOR DR. MATTSON. I HAVE REVIEWED THE ABOVE DOCUMENT, WRITTEN BY CURRY QUEZADAIBZechariah AND I VERIFY THAT IT IS ACCURATE. PROCEDURE CODES 6045F RADXPS IN END [id number] PXD 20220 INJECT SACROILIAC JOINT, MODIFIERS: LT DISPOSITION & COMMUNICATION FOLLOW UP 3 WEEKS ELECTRONICALLY SIGNED BY AMOS MATTSON MD, MD ON 11/06/2018 AT 12:56 PM EDT DISCLAIMER : THIS IS A VISIT SUMMARY EXTRACTED FROM THE [employer] CHART. IT IS NOT A COPY OF THE [employer] PROGRESS NOTE. JORDYN
== END ==
LOC: M PAIN 13:45
PROVIDERS: ATTEND Anesthesiology
DX: M46.1 Sacroiliitis, not elsewhere classified (principal); F41.9 Anxiety disorder, unspecified; K21.9 Gastro-esophageal reflux disease without esophagitis; G47.33 Obstructive sleep apnea (adult) (pediatric); M35.00 Sjogren syndrome, unspecified; F17.210 Nicotine dependence, cigarettes, uncomplicated; Z79.891 Long term (current) use of opiate analgesic; Z79.899 Other long term (current) drug therapy
CPT/HCPCS: 27096; J3301; Q9967

== ENCOUNTER → 2018-11-30 | Outpatient (CLI) | payer OTHER ==
[~2018-11-30] MED LIST changes: -BUPIVACAINE HCL 0.25% 30 ML VIAL As Ordered ONE; -DULO1CAP3 PO; +DULO1CAP6 PO; -ISOVUE-M 300 61% 15ML VIAL (Q9967) As Ordered ONE; -LIDOCAINE 1% SDV INJ 30 ML VIAL As Ordered ONE; -TRIAMCINOLONE ACETONIDE SUSP 40 MG/ML VIAL (J3301) As Ordered ONE; -diazePAM 5 MG TAB As Ordered ONE; -oxyCODONE 5MG TAB As Ordered ONE
[2018-11-30 17:51] LABS: ALT/SGPT 66 U/L (12-78); C REACTIVE PROTEIN QUANTITATIV 1.08 MG/DL (0.00-0.30); CREATININE FOR GFR 0.95 MG/DL (0.70-1.30); GLOMERULAR FILTRATION RATE > 60.0 (>60)
[2018-11-30 17:59] LABS: BASO % 0.6 % (0.0-1.0); EOS # 0.1 10^3/uL (0.0-0.50); EOS % 0.7 % (0.0-3.0); HEMATOCRIT 45.2 % (42.0-52.0); HEMOGLOBIN 14.4 g/dl (13.5-17.5); LYMPH # 2.1 10^3/uL (1.5-4.5); LYMPH % 30.4 % (24.0-44.0); MEAN CORPUSCULAR HEMOGLOBIN 32.1 pg (27.0-33.0); MEAN CORPUSCULAR HGB CONC 31.9 g/dl (32.0-36.5); MEAN CORPUSCULAR VOLUME 100.9 fl (80.0-96.0); MONO # 0.5 10^3/uL (0.0-0.8); MONO % 7.3 % (0.0-5.0); NEUTROPHILS # 4.2 10^3/uL (1.8-7.7); NEUTROPHILS % 60.6 % (36.0-66.0); PLATELET COUNT, AUTOMATED 204 10^3/uL (150-450); RED BLOOD COUNT 4.48 10^6/uL (4.30-6.10); WHITE BLOOD COUNT 6.9 10^3/uL (4.0-10.0)
[2018-11-30 19:55] LABS: ERYTHROCYTE SEDIMENTATION RATE 10 mm/hr (0-15)
== END ==
LOC: M WUC 13:14
PROVIDERS: ATTEND Nurse Practitioner
DX: M06.09 Rheumatoid arthritis without rheumatoid factor, multiple sites (principal); R53.83 Other fatigue; Z79.899 Other long term (current) drug therapy

== ENCOUNTER → 2018-12-18 | Outpatient (CLI) | payer OTHER | LOC: M PAIN 13:45 | PROVIDERS: ATTEND Nurse Practitioner Family | DX: M51.36 Other intervertebral disc degeneration, lumbar region (principal); M12.9 Arthropathy, unspecified; Z86.59 Personal history of other mental and behavioral disorders; K21.9 Gastro-esophageal reflux disease without esophagitis; G47.33 Obstructive sleep apnea (adult) (pediatric); F17.210 Nicotine dependence, cigarettes, uncomplicated; E66.01 Morbid (severe) obesity due to excess calories; Z68.41 Body mass index [BMI] 40.0-44.9, adult; Z79.891 Long term (current) use of opiate analgesic; Z79.899 Other long term (current) drug therapy ==

== ENCOUNTER → 2019-06-04 | Outpatient (CLI) | payer OTHER ==
[~2019-06-04] MED LIST changes: -LORA1TAB12; +LORA1TAB4; -OMEP40CA2 PO; +OMEP40CA97 PO
--- NOTE | 2019-06-13 03:38 | ECWPNPC ---
PATIENT NAME: DEIRDRE DUBOSE : 1980 GENDER: MALE VISIT DATE: 06/04/2019 DISCHARGE DATE: 06/04/19 1038 VISIT LOCKED DATE TIME: PHYSICIAN: AMOS MATTSON MD PHYSICIAN PAGER NO: [phone] RESOURCE: AMOS MATTSON MD REASON FOR APPOINTMENT 1. FOLLOWUP POST CANCELLED LFBDX HISTORY OF PRESENT ILLNESS HISTORY OF PRESENT ILLNESS: PAIN THE PATIENT DESCRIBES THE PAIN... 39-YEAR-OLD MALE PATIENT WITH A HISTORY OF CHRONIC MULTIPLE BODY PAINS. THE PATIENT DESCRIBES THE PAIN ACHING, BURNING, SORE, SHARP, STABBING AND CONTINUOUS WITH A PAIN SCORE OF 4-10/10 DEPENDING ON PHYSICAL ACTIVITY. THE PATIENT STATES THE PAIN AFFECTS HIS BACK, SHOULDERS, HANDS, KNEES AND LOWER BACK. PATIENT DENIES UNEXPLAINABLE WEIGHT LOSS, FEVER, CHILLS, OR NEW CHANGES IN HIS URINARY OR BOWEL CONTROL. FALL RISK SCREENING: SCREENING :NO FALLS REPORTED IN THE LAST YEAR CURRENT MEDICATIONS TAKING TRIAMCINOLONE ACETONIDE 0.1 % PASTE 1 APPLICATION TO CANKER SORES MOUTH/THROAT BEFORE BEDTIME NEEDED TAKING FOLIC ACID 1 MG TABLET 1 TABLET ORALLY ONCE A DAY, NOTES: 06/03/19 TAKING HUMIRA PEN 40 MG/0.4ML PEN-INJECTOR KIT DIRECTED SUBCUTANEOUS EVERY 2 WEEKS, NOTES: 05/22/19 TAKING NICOTINE POLACRILEX 4 MG GUM 1 PIECE NEEDED MOUTH/THROAT 3X/DAY, NOTES: 06/03/19 TAKING COLACE 100 MG CAPSULE 1 CAPSULE NEEDED ORALLY BID, NOTES: NONE RECENT TAKING ZOFRAN ODT 4 MG TABLET DISPERSIBLE 1 TABLET ON THE TONGUE AND ALLOW TO DISSOLVE ORALLY EVERY 8 HRS, NOTES: NONE RECENT TAKING MOVANTIK 12.5 MG TABLET 1 TABLET IN THE MORNING ORALLY ONCE A DAY, NOTES: 06/03/19 TAKING SIMETHICONE 80 MG TABLET CHEWABLE 1 TABLET AFTER MEALS AND AT BEDTIME NEEDED ORALLY FOUR TIMES A DAY, NOTES: 06/03/19 TAKING METHOTREXATE 2.5 MG/ML SOLUTION 1 10CC INJECTION ORALLY WEEKLY, NOTES: 05/26/19 TAKING DULOXETINE HCL 60 MG CAPSULE DELAYED RELEASE PARTICLES 1 CAPSULE ORALLY ONCE A DAY, NOTES: 06/02/19 TAKING AMITRIPTYLINE HCL 50 MG TABLET 1 TABLET ORALLY ONCE A DAY, NOTES: 06/02/19 TAKING LORAZEPAM 1MG ORAL DAILY, NOTES: 06/03/19 TAKING BUPROPION HCL ER (XL) 300 MG TABLET EXTENDED RELEASE 24 HOUR 1 TABLET IN THE MORNING ORALLY ONCE A DAY, NOTES: 06/03/19 AM TAKING DULOXETINE HCL 30 MG CAPSULE DELAYED RELEASE PARTICLES 1 CAPSULE C 60MG ORALLY ONCE A DAY, NOTES: 06/02/19 TAKING TIZANIDINE HCL 4 MG TABLET 1 TABLET NEEDED ORALLY THREE TIMES A DAY, NOTES: 06/03/19 TAKING BACLOFEN 10 MG TABLET 1 TABLET WITH FOOD OR MILK ORALLY Q6H QID, NOTES: 06/03/19 TAKING OMEPRAZOLE 40 MG CAPSULE DELAYED RELEASE 1 CAPSULE ORALLY BID, NOTES: 06/03/19 TAKING GABAPENTIN 600 MG TABLET 1 TABLET ORALLY Q8H TID, NOTES: 06/03/19 TAKING DICLOFENAC SODIUM 50 MG TABLET DELAYED RELEASE 1 TABLET WITH FOOD OR MILK ORALLY THREE TIMES A DAY, NOTES: 06/03/19 TAKING NORCO 7.5-325 MG TABLET 1 TABLET NEEDED ORALLY EVERY 6 HRS PRN MDD4, NOTES: 06/03/19 TAKING MS CONTIN 30 MG TABLET EXTENDED RELEASE 1 TABLET ORALLY EVERY 12 HRS MDD2, NOTES: 06/03/19 AM NOT-TAKING FOLIC ACID 1 MG TABLET 1 TABLET ORALLY ONCE A DAY, NOTES: DUPLICATE NOT-TAKING SIMETHICONE 180 MG CAPSULE 1 CAPSULE AFTER MEALS AND AT BEDTIME NEEDED ORALLY TWICE A DAY MEDICATION LIST REVIEWED AND RECONCILED WITH THE PATIENT PAST MEDICAL HISTORY ANXIETY GERD BINH SISTER C RECESSIVE TRAIT OF MPS G1 GENETIC LIPID STORAGE DISORDER SYNCOPE-WEARS STOCKINGS PTSD-MARLYN @ [facility] [place]; FEET-DR. ROSAS VISUAL SNOW SYNDROME SJOGREN'S SYNDROME C NEUROPATHY DEGENERATIVE DISC DISEASE LUMBAR SPINE C NEUROPATHY MACULAR DEGENERATION [facility] ALLERGIES N.K.D.A. SURGICAL HISTORY VASECTOMY 09/19/2017 COLONOSCOPY -- [facility] 09/2017 FAMILY HISTORY FATHER: ALIVE, DIAGNOSED WITH DIABETES, HYPERTENSION, UNSPECIFIED HEART DISEASE MOTHER: ALIVE, HYPERTENSION SIBLINGS: ALIVE, OTHER SPECIFIED CONDITIONS INFLUENCING HEALTH STATUS SON(S): ALIVE DAUGHTER(S): ALIVE 2 BROTHER(S) , 1 SISTER(S) - HEALTHY. 2 SON(S) , 1 DAUGHTER(S) - HEALTHY. FATHER- KIDNEY FAILURE STAGE 5NO FAMILY H/O MS FATHER- KIDNEY FAILURE STAGE 4NO FAMILY H/O MS. SOCIAL HISTORY GENERAL: TOBACCO USE ARE YOU A:CURRENT SMOKER STARTED SMOKING IN TEENAGE YEARS AND QUIT 2018. SMOKED 5 CIGARETTES PER DAY ARE YOU INTERESTED IN QUITTING?THINKING ABOUT QUITTING COUNSELED THE PATIENT ON SMOKING CESSATION, EDUCATION [id number]/14/2019 SMOKING CESSATION INFORMATION GIVEN12/18/2018 PREVIOUS QUIT ATTEMPTS?YES, WITHIN THE LAST 6 MONTHS. HIV / HEP-C SCREENING HIV TEST OFFERED TO PATIENT:YES DATE OFFERED:07/18/2017 TEST ACCEPTED:NO HEP-C TEST OFFERED TO PATIENT:YES DATE OFFERED:07/18/2017 REASON:PATIENT DECLINED TEST ACCEPTED:NO REASON:PATIENT DECLINED BROCHURE PROVIDED TO PATIENTNO OTHERS AT HOME: CHILDREN. HOUSING: RENTS APARTMENT. EDUCATION LEVEL OF EDUCATION:NOT FINISHED COLLEGE DIET: REGULAR. LANGUAGE LANGUAGES SPOKEN:KYRGYZ DOMESTIC VIOLENCE DO YOU FEEL SAFE IN YOUR ENVIRONMENT?YES RECREATIONAL DRUG USE DRUG USE?NO EXERCISE: NONE "NOT ANYMORE". LEARNING BARRIERS / SPECIAL NEEDS CHANGE FROM LAST VISIT?YES MRI IMAGING BARRIERS TO LEARNING?NO HEARING IMPAIRED?YES TINNITUS BILATERAL VISION IMPAIRED?YES VISUAL SNOW SYNDROME COGNITIVELY IMPAIRED?NO :CORRECTIVE LENSES READINESS TO LEARN?YES LEARNING PREFERENCES?NO LEARNING CAPABILITIES PRESENT?YES EMOTIONAL BARRIERS?NO SPECIAL DEVICES?YES :CANE DUMP MOTORMAN NEEDED?NO PAIN CLINIC PFS, CLERGY, PUBLIC HEALTH REFERRALS PFS REFERRAL NEEDED?NO CLERGY REFERRAL NEEDED?NO PUBLIC HEALTH REFERRAL NEEDED?NO WAS THE PROVIDER NOTIFIED OF ANY PERTINENT INFO?NO N/A HAS THE PATIENT BEEN EDUCATED REGARDING HIS/HER PLAN OF CARE?YES HAS THE PATIENT BEEN EDUCATED REGARDING PAIN, THE RISK FOR PAIN, THE IMPORTANCE OF EFFECTIVE PAIN MANAGEMENT, AND THE PAIN ASSESSMENT PROCESS?YES LATEX QUESTIONNAIRE LATEX ALLERGY : HAVE YOU EVER DEVELOPED ANY TYPE OF REACTION AFTER HANDLING LATEX PRODUCTS SUCH RUBBER GLOVES, CONDOMS, DIAPHRAGMS, BALLOONS, SOCKS, OR UNDERWEAR?NO LATEX ALLERGY : HAVE YOU EVER DEVELOPED ANY TYPE OF REACTION DURING OR AFTER DENTAL APPOINTMENT, VAGINAL/RECTAL EXAMINATION, SURGICAL PROCEDURE, OR ANY OTHER EXPOSURE?NO DATE ASKED : 10/29/2018 LATEX RISK : HAVE YOU EVER HAD ANY DIFFICULTY BREATHING OR HIVES AFTER EATING OR HANDLING ANY FRUITS, OR VEGETABLES; SUCH KIWI, BANANAS, STONE FRUITS, OR CHESTNUTSNO LATEX RISK : DO YOU HAVE A PREVIOUS PERSONAL HISTORY OF MORE THAN NINE SURGERIES, SPINA BIFIDA, OR REPEATED CATHERIZATIONS? NO LATEX RISK : ARE YOU FREQUENTLY EXPOSED TO LATEX PRODUCTS IN YOUR OCCUPATION?NO CAFFEINE CAFFEINE USE?YES ENERGY DRINKS = 2 PER DAY TEA = A COUPLE GLASSES PER DAY COFFEE = 1 CUP PER DAY ADVANCE DIRECTIVE ADVANCE DIRECTIVE DISCUSSED WITH PATIENT:YES PATIENT GIVEN HCP INFORMATION AT THIS TIME, DECLINED ASSISTANCE IN FILLING THE FORM AT THIS TIME. [id number] NO LATTER DAY BELIEFS THAT WOULD IMPACT HEALTH CARE. MARITAL STATUS: . ALCOHOL SCREENING DID YOU HAVE A DRINK CONTAINING ALCOHOL IN THE PAST YEAR?NO POINTS0 INTERPRETATIONNEGATIVE OCCUPATION: CALL CENTER. SEXUAL HX HAD SEX IN THE LAST 12 MONTHS (VAGINAL, ORAL, OR ANAL)?YES WITHWOMEN ONLY USE PROTECTION?NO HAVE YOU EVER HAD AN STD?NO 10/11/17 1000 REVIEWED WITH PT AD01/15/18 1120 REVIEWED WITH PT BVREVIEWED WITH PATIENT 06/04/18 1406 JSREVIEWED WITH PATIENT 10/29/18 1448 JSREVIEWED WITH PATIENT 12/18/18 1433 NLJREVIEWED WITH PATIENT 06/04/19 0911 BV. HOSPITALIZATION/MAJOR DIAGNOSTIC PROCEDURE SLEEP STUDY REVIEW OF SYSTEMS REVIEWED BY: PROVIDER: AMOS MATTSON MD . CONSTITUTIONAL: ANY CHANGE IN YOUR MEDICAL CONDITION? YES, DEGENERATIVE OCCULAR . CHILLS NO . FEVER NO . INFECTION: DO YOU HAVE NEW INFECTIONS? NO . DO YOU HAVE HISTORY OF MRSA? NO . MUSCULOSKELETAL: ANY NEW PATTERNS OF PAIN OR NUMBNESS? NO . GASTROENTEROLOGY: ANY NEW CHANGE IN BOWEL CONTROL? NO . GENITOURINARY: ANY NEW CHANGE IN BLADDER CONTROL? NO . IS THERE A CHANCE YOU COULD BE ? NO . HEMATOLOGY/LYMPH: DO YOU TAKE ANY BLOOD THINNERS? (FOR EXAMPLE- COUMADIN, PLAVIX, AGGRENOX, PLATEL, PRADAXA, OR XARELTO) NO . WHEN WAS YOUR LAST DOSE? DATE: TIME: . NEUROLOGY: HAVE YOU FALLEN IN THE PAST 12 MONTHS? PT STATES HE HAD A FALL A FEW WEEKS AGO, HE STOOD UP AND LOST BALANCE AND FELL BACK ONTO CHAIR. DENIES ANY INJURIES OR ED VISIT. . ANY NEW EXTREMITY NUMBNESS OR WEAKNESS? NO . CARDIOLOGY: DO YOU HAVE A PACEMAKER OR DEFIBRILLATOR? NO . RESPIRATORY: HAVE YOU BEEN SICK IN THE PAST WEEK? NO . FEVER NO . FLU LIKE SYMPTOMS? NO . COUGH NO . INTEGUMENTARY: DO YOU HAVE ANY RASHES OR OPEN SORES? NO . ALLERGIC/IMMUNO: ARE YOU ALLERGIC TO IV DYE? NO . ANY NEW ALLERGIES? NO . PSYCHIATRIC: DO YOU HAVE THOUGHTS OF HURTING YOURSELF OR SOMEONE ELSE? NO . ARE YOU ABUSED, NEGLECTED, OR IN AN UNSAFE ENVIRONMENT? NO . ENDOCRINOLOGY: ARE YOU DIABETIC? NO . OTHER: DO YOU NEED ANY PRESCRIPTIONS? NO . IF YES, PLEASE LIST: ____ . ANY NEW PROBLEMS WITH YOUR MEDICATIONS? NO . WHEN DID YOU LAST EAT? 06/03/19 1700 . WHEN DID YOU LAST DRINK? 06/04/29 0730 ICE TEA . WHAT DID YOU LAST DRINK? ____ . NAME OF PERSON DRIVING YOU HOME? DARRYL- . DO YOU HAVE ANY OTHER QUESTIONS OR CONCERNS NO . VITAL SIGNS WT 302.2 LBS, HT 70 IN, BMI 43.36 INDEX, BP 138/71 MM HG, HR 98 /MIN, RR 20 /MIN, TEMP 97.2 F, OXYGEN SAT % 97% ROOM AIR, SAFE IN ENV? (Y/N) YES, NA INITIALS 0950, REVIEWED BY: BV. EXAMINATION GENERAL EXAMINATION: PATIENT IS ALERT O X 3 AND COOPERATIVE. THE PATIENT'S GAIT IS ANTALGIC. HE WALKS WITH A CANE HELD IN HIS LEFT HAND. THERE IS TENDERNESS IN THE LOWER BACK AREA OVER THE PARASPINAL MUSCLE AREA AND IN THE KNEES. ASSESSMENTS LOW BACK PAIN - M54.5 (PRIMARY) OTHER CHRONIC PAIN - G89.29 PAIN, UNSPECIFIED - R52 HISTORY OF ARTHROPATHY. TREATMENT LOW BACK PAIN CLINICAL NOTES: WE DISCUSSED SEVERAL ISSUES WITH MR. DUBOSE'S PAIN MANAGEMENT CASE. THE PATIENT WAS CONSIDERING A DIAGNOSTIC LUMBAR FACET BLOCK; HOWEVER, THE PATIENT CHOSE NOT TO CONTINUE WITH THE PROCEDURE BECAUSE HE FEELS THAT EVEN IF HE RECEIVES RELIEF FROM A RADIOFREQUENCY FACET BLOCK, HE WILL NEED MEDICATION REGARDLESS DUE TO PAIN IN OTHER PARTS OF HIS BODY. THE PATIENT WILL CONTINUE MEDICATION MANAGEMENT AND WILL FOLLOW UP WITH A NURSE PRACTITIONER IN A FEW WEEKS TO DISCUSS OPTIONS THAT INCLUDE PALLIATIVE CARE FOR MEDICATION MANAGEMENT. INSTRUCTIONS WERE GIVEN, QUESTIONS WERE ANSWERED, PATIENT REPORTS UNDERSTANDING AND AGREES WITH THE PLAN. I, ANGIE JACOME, DOCUMENTED THE ABOVE INFORMATION ACTING A SCRIBE FOR DR. MATTSON. I HAVE REVIEWED THE ABOVE DOCUMENT, WRITTEN BY MICHELA MATOS, AND I VERIFY THAT IT IS ACCURATE. . PROCEDURE CODES FA211 ESTABILISHED PATIENT [facility] FACILITY CHARGE G9827 CURRENT MEDS W/DOSAGES DOCUMENTED Q9474 PAIN ASSESS POS TOOL F/U PLAN DOC DISPOSITION & COMMUNICATION FOLLOW UP 3 WEEKS ELECTRONICALLY SIGNED BY AMOS MATTSON MD, MD ON 06/12/2019 AT 05:39 PM EST DISCLAIMER : THIS IS A VISIT SUMMARY EXTRACTED FROM THE [employer] CHART. IT IS NOT A COPY OF THE [employer] PROGRESS NOTE. JORDYN
== END ==
LOC: M PAIN 08:45
PROVIDERS: ATTEND Anesthesiology
DX: M54.5 Low back pain (principal); G89.29 Other chronic pain; R52 Pain, unspecified

== ENCOUNTER → 2019-06-24 | Outpatient (CLI) | payer OTHER ==
--- NOTE | 2019-07-04 06:34 | ECWPNPC ---
PATIENT NAME: DEIRDRE DUBOSE : 1980 GENDER: MALE VISIT DATE: 06/24/2019 DISCHARGE DATE: 06/24/19 1121 VISIT LOCKED DATE TIME: PHYSICIAN: FRANSICO BLACK PHYSICIAN PAGER NO: [phone] RESOURCE: FRANSICO BLACK REASON FOR APPOINTMENT 1. FOLLOW UP HISTORY OF PRESENT ILLNESS HISTORY OF PRESENT ILLNESS: HERE FOR ROUTINE F/U AND MEDICINE MANAGEMENT OF CHRONIC GENERALIZED JOINT PAIN ASSOCIATED WITH INFLAMMATORY ARTHROPATHY W HX OF RHEUMATOID ARTHRITIS AND SJOGRENS SYNDROME.RATING PAIN VAS 5/10. FINDINGS BACLOFEN HELPFUL. FURTHER LOWER EXTREMITY CRAMPING AND USES TIZANIDINE WHEN NECESSARY FOR SEVERE EPISODES OF CRAMPING WITH RELIEF.SAW DR. MATTSON TO EVALUATE FOR INTERVENTIONAL OPTIONS. DR. MATTSON IS TELLING HIM THAT HE WOULD BENEFIT MOST WITH MEDICINE MANAGEMENT AND NOT BENEFIT TOO MUCH FROM RADIOFREQUENCY TRIAL. DR. MATTSON WAS RECOMMENDING PALLIATIVE CARE REFERRAL. PATIENT AND HIS ARE SOMEWHAT RELUCTANT BUT WILLING TO GO AND SEE WHAT THEY HAVE TO OFFER. THEY ARE WELCOME BACK HERE IF NOT HAPPY THERE. PAIN THE PATIENT DESCRIBES THE PAIN... FALL RISK SCREENING: SCREENING :NO FALLS REPORTED IN THE LAST YEAR CURRENT MEDICATIONS TAKING TRIAMCINOLONE ACETONIDE 0.1 % PASTE 1 APPLICATION TO CANKER SORES MOUTH/THROAT BEFORE BEDTIME NEEDED TAKING FOLIC ACID 1 MG TABLET 1 TABLET ORALLY ONCE A DAY TAKING HUMIRA PEN 40 MG/0.4ML PEN-INJECTOR KIT DIRECTED SUBCUTANEOUS EVERY 2 WEEKS TAKING NICOTINE POLACRILEX 4 MG GUM 1 PIECE NEEDED MOUTH/THROAT 3X/DAY TAKING ZOFRAN ODT 4 MG TABLET DISPERSIBLE 1 TABLET ON THE TONGUE AND ALLOW TO DISSOLVE ORALLY EVERY 8 HRS, NOTES: NONE RECENT TAKING SIMETHICONE 80 MG TABLET CHEWABLE 1 TABLET AFTER MEALS AND AT BEDTIME NEEDED ORALLY FOUR TIMES A DAY, NOTES: 06/03/19 TAKING METHOTREXATE 2.5 MG/ML SOLUTION 1 10CC INJECTION ORALLY WEEKLY TAKING DULOXETINE HCL 60 MG CAPSULE DELAYED RELEASE PARTICLES 1 CAPSULE ORALLY ONCE A DAY TAKING AMITRIPTYLINE HCL 50 MG TABLET 1 TABLET ORALLY ONCE A DAY TAKING LORAZEPAM 1MG ORAL DAILY TAKING DULOXETINE HCL 30 MG CAPSULE DELAYED RELEASE PARTICLES 1 CAPSULE C 60MG ORALLY ONCE A DAY TAKING TIZANIDINE HCL 4 MG TABLET 1 TABLET NEEDED ORALLY THREE TIMES A DAY TAKING OMEPRAZOLE 40 MG CAPSULE DELAYED RELEASE 1 CAPSULE ORALLY BID TAKING GABAPENTIN 600 MG TABLET 1 TABLET ORALLY Q8H TID TAKING DICLOFENAC SODIUM 50 MG TABLET DELAYED RELEASE 1 TABLET WITH FOOD OR MILK ORALLY THREE TIMES A DAY TAKING MOVANTIK 12.5 MG TABLET 1 TABLET IN THE MORNING ORALLY ONCE A DAY TAKING NORCO 7.5-325 MG TABLET 1 TABLET NEEDED ORALLY EVERY 6 HRS PRN MDD4 TAKING MS CONTIN 30 MG TABLET EXTENDED RELEASE 1 TABLET ORALLY EVERY 12 HRS MDD2 TAKING BACLOFEN 10 MG TABLET 1 TABLET WITH FOOD OR MILK ORALLY Q6H QID NOT-TAKING COLACE 100 MG CAPSULE 1 CAPSULE NEEDED ORALLY BID, NOTES: NONE RECENT NOT-TAKING BUPROPION HCL ER (XL) 300 MG TABLET EXTENDED RELEASE 24 HOUR 1 TABLET IN THE MORNING ORALLY ONCE A DAY, NOTES: 06/03/19 AM NOT-TAKING FOLIC ACID 1 MG TABLET 1 TABLET ORALLY ONCE A DAY, NOTES: DUPLICATE NOT-TAKING SIMETHICONE 180 MG CAPSULE 1 CAPSULE AFTER MEALS AND AT BEDTIME NEEDED ORALLY TWICE A DAY MEDICATION LIST REVIEWED AND RECONCILED WITH THE PATIENT PAST MEDICAL HISTORY ANXIETY GERD BINH SISTER C RECESSIVE TRAIT OF MPS G1 GENETIC LIPID STORAGE DISORDER SYNCOPE-WEARS STOCKINGS PTSD-MARLYN @ [facility] [place]; FEET-DR. ROSAS VISUAL SNOW SYNDROME SJOGREN'S SYNDROME C NEUROPATHY DEGENERATIVE DISC DISEASE LUMBAR SPINE C NEUROPATHY MACULAR DEGENERATION [facility] ALLERGIES N.K.D.A. SURGICAL HISTORY VASECTOMY 09/19/2017 COLONOSCOPY -- [facility] 09/2017 FAMILY HISTORY FATHER: ALIVE, DIAGNOSED WITH DIABETES, HYPERTENSION, UNSPECIFIED HEART DISEASE MOTHER: ALIVE, HYPERTENSION SIBLINGS: ALIVE, OTHER SPECIFIED CONDITIONS INFLUENCING HEALTH STATUS SON(S): ALIVE DAUGHTER(S): ALIVE 2 BROTHER(S) , 1 SISTER(S) - HEALTHY. 2 SON(S) , 1 DAUGHTER(S) - HEALTHY. FATHER- KIDNEY FAILURE STAGE 5NO FAMILY H/O MS FATHER- KIDNEY FAILURE STAGE 4NO FAMILY H/O MS. SOCIAL HISTORY GENERAL: TOBACCO USE ARE YOU A:CURRENT SMOKER STARTED SMOKING IN TEENAGE YEARS AND QUIT 2017. SMOKED 5 CIGARETTES PER DAY ARE YOU INTERESTED IN QUITTING?THINKING ABOUT QUITTING PREVIOUS QUIT ATTEMPTS?YES, WITHIN THE LAST 6 MONTHS. COUNSELED THE PATIENT ON SMOKING CESSATION, EDUCATION [id number]/14/2019 HOW MANY CIGARETTES A DAY DO YOU SMOKE?5 OR LESS 2-3 DAY SMOKING CESSATION INFORMATION GIVEN12/18/2018 HIV / HEP-C SCREENING HIV TEST OFFERED TO PATIENT:YES DATE OFFERED:07/18/2017 TEST ACCEPTED:NO HEP-C TEST OFFERED TO PATIENT:YES DATE OFFERED:07/18/2017 REASON:PATIENT DECLINED TEST ACCEPTED:NO REASON:PATIENT DECLINED BROCHURE PROVIDED TO PATIENTNO OTHERS AT HOME: CHILDREN. HOUSING: RENTS APARTMENT. EDUCATION LEVEL OF EDUCATION:NOT FINISHED COLLEGE DIET: REGULAR. LANGUAGE LANGUAGES SPOKEN:SPANISH DOMESTIC VIOLENCE DO YOU FEEL SAFE IN YOUR ENVIRONMENT?YES RECREATIONAL DRUG USE DRUG USE?NO EXERCISE: NONE "NOT ANYMORE". LEARNING BARRIERS / SPECIAL NEEDS CHANGE FROM LAST VISIT?YES MRI IMAGING BARRIERS TO LEARNING?NO HEARING IMPAIRED?YES TINNITUS BILATERAL VISION IMPAIRED?YES VISUAL SNOW SYNDROME COGNITIVELY IMPAIRED?NO :CORRECTIVE LENSES READINESS TO LEARN?YES LEARNING PREFERENCES?NO LEARNING CAPABILITIES PRESENT?YES EMOTIONAL BARRIERS?NO SPECIAL DEVICES?YES :CANE INFANTRY UNIT LEADER NEEDED?NO PAIN CLINIC PFS, CLERGY, PUBLIC HEALTH REFERRALS PFS REFERRAL NEEDED?NO CLERGY REFERRAL NEEDED?NO PUBLIC HEALTH REFERRAL NEEDED?NO WAS THE PROVIDER NOTIFIED OF ANY PERTINENT INFO?NO N/A HAS THE PATIENT BEEN EDUCATED REGARDING HIS/HER PLAN OF CARE?YES HAS THE PATIENT BEEN EDUCATED REGARDING PAIN, THE RISK FOR PAIN, THE IMPORTANCE OF EFFECTIVE PAIN MANAGEMENT, AND THE PAIN ASSESSMENT PROCESS?YES LATEX QUESTIONNAIRE LATEX ALLERGY : HAVE YOU EVER DEVELOPED ANY TYPE OF REACTION AFTER HANDLING LATEX PRODUCTS SUCH RUBBER GLOVES, CONDOMS, DIAPHRAGMS, BALLOONS, SOCKS, OR UNDERWEAR?NO LATEX ALLERGY : HAVE YOU EVER DEVELOPED ANY TYPE OF REACTION DURING OR AFTER DENTAL APPOINTMENT, VAGINAL/RECTAL EXAMINATION, SURGICAL PROCEDURE, OR ANY OTHER EXPOSURE?NO DATE ASKED : 10/29/2018 LATEX RISK : HAVE YOU EVER HAD ANY DIFFICULTY BREATHING OR HIVES AFTER EATING OR HANDLING ANY FRUITS, OR VEGETABLES; SUCH KIWI, BANANAS, STONE FRUITS, OR CHESTNUTSNO LATEX RISK : DO YOU HAVE A PREVIOUS PERSONAL HISTORY OF MORE THAN NINE SURGERIES, SPINA BIFIDA, OR REPEATED CATHERIZATIONS? NO LATEX RISK : ARE YOU FREQUENTLY EXPOSED TO LATEX PRODUCTS IN YOUR OCCUPATION?NO CAFFEINE CAFFEINE USE?YES ENERGY DRINKS = 2 PER DAY TEA = A COUPLE GLASSES PER DAY COFFEE = 1 CUP PER DAY ADVANCE DIRECTIVE ADVANCE DIRECTIVE DISCUSSED WITH PATIENT:YES PATIENT GIVEN HCP INFORMATION AT THIS TIME, DECLINED ASSISTANCE IN FILLING THE FORM AT THIS TIME. GNOSTICISM [id number] ANGLICAN NO CONFUCIANISM BELIEFS THAT WOULD IMPACT HEALTH CARE. MARITAL STATUS: . ALCOHOL SCREENING DID YOU HAVE A DRINK CONTAINING ALCOHOL IN THE PAST YEAR?NO POINTS0 INTERPRETATIONNEGATIVE OCCUPATION: CALL CENTER. SEXUAL HX HAD SEX IN THE LAST 12 MONTHS (VAGINAL, ORAL, OR ANAL)?YES WITHWOMEN ONLY USE PROTECTION?NO HAVE YOU EVER HAD AN STD?NO 10/11/17 1000 REVIEWED WITH PT AD01/15/18 1120 REVIEWED WITH PT BVREVIEWED WITH PATIENT 06/04/18 1406 JSREVIEWED WITH PATIENT 10/29/18 1448 JSREVIEWED WITH PATIENT 12/18/18 1433 NLJREVIEWED WITH PATIENT 06/04/19 0911 BV. HOSPITALIZATION/MAJOR DIAGNOSTIC PROCEDURE SLEEP STUDY REVIEW OF SYSTEMS REVIEWED BY: PROVIDER: FRANSICO SAUNDERS . CONSTITUTIONAL: ANY CHANGE IN YOUR MEDICAL CONDITION? NO . CHILLS NO . FEVER NO . INFECTION: DO YOU HAVE NEW INFECTIONS? NO . DO YOU HAVE HISTORY OF MRSA? NO . MUSCULOSKELETAL: ANY NEW PATTERNS OF PAIN OR NUMBNESS? NO . GASTROENTEROLOGY: ANY NEW CHANGE IN BOWEL CONTROL? NO . GENITOURINARY: ANY NEW CHANGE IN BLADDER CONTROL? NO . IS THERE A CHANCE YOU COULD BE ? NO . HEMATOLOGY/LYMPH: DO YOU TAKE ANY BLOOD THINNERS? (FOR EXAMPLE- COUMADIN, PLAVIX, AGGRENOX, PLATEL, PRADAXA, OR XARELTO) NO . WHEN WAS YOUR LAST DOSE? DATE: TIME: . NEUROLOGY: HAVE YOU FALLEN IN THE PAST 12 MONTHS? NO . ANY NEW EXTREMITY NUMBNESS OR WEAKNESS? NO . CARDIOLOGY: DO YOU HAVE A PACEMAKER OR DEFIBRILLATOR? NO . RESPIRATORY: HAVE YOU BEEN SICK IN THE PAST WEEK? NO . FEVER NO . FLU LIKE SYMPTOMS? NO . COUGH NO . INTEGUMENTARY: DO YOU HAVE ANY RASHES OR OPEN SORES? NO . ALLERGIC/IMMUNO: ARE YOU ALLERGIC TO IV DYE? NO . ANY NEW ALLERGIES? NO . PSYCHIATRIC: DO YOU HAVE THOUGHTS OF HURTING YOURSELF OR SOMEONE ELSE? NO . ARE YOU ABUSED, NEGLECTED, OR IN AN UNSAFE ENVIRONMENT? NO . ENDOCRINOLOGY: ARE YOU DIABETIC? NO . OTHER: DO YOU NEED ANY PRESCRIPTIONS? NO . IF YES, PLEASE LIST: ____ . ANY NEW PROBLEMS WITH YOUR MEDICATIONS? NO . WHEN DID YOU LAST EAT? ____ . WHEN DID YOU LAST DRINK? ____ . WHAT DID YOU LAST DRINK? ____ . NAME OF PERSON DRIVING YOU HOME? ____ . DO YOU HAVE ANY OTHER QUESTIONS OR CONCERNS NO . VITAL SIGNS WT 298.4 LBS, HT 70 IN, BMI 42.81 INDEX, BP 133/72 MM HG, HR 79 /MIN, RR 18 /MIN, TEMP 97.6 F, OXYGEN SAT % 99%, SAFE IN ENV? (Y/N) YES, NA INITIALS AW 1024, REVIEWED BY: KG. EXAMINATION GENERAL EXAMINATION: GENERALNO ACUTE DISTRESS. PSYCHAFFECT NORMAL. LUNGS:LUNG RENTERIA ARE CLEAR TO AUSCULTATION BILATERALLY. GOOD MOVEMENT OF AIR. HEART:S1, S2 IN A REGULAR RATE AND RHYTHM. NO SIGNIFICANT MURMURS, RUBS OR GALLOPS NOTED. ASSESSMENTS SJOGREN'S SYNDROME WITH OTHER ORGAN INVOLVEMENT - M35.09 (PRIMARY) INFLAMMATORY ARTHROPATHY - M19.90 TREATMENT SJOGREN'S SYNDROME WITH OTHER ORGAN INVOLVEMENT CONTINUE DULOXETINE HCL CAPSULE DELAYED RELEASE PARTICLES, 60 MG, 1 CAPSULE, ORALLY, ONCE A DAY CONTINUE AMITRIPTYLINE HCL TABLET, 50 MG, 1 TABLET, ORALLY, ONCE A DAY CONTINUE DULOXETINE HCL CAPSULE DELAYED RELEASE PARTICLES, 30 MG, 1 CAPSULE C 60MG, ORALLY, ONCE A DAY CONTINUE TIZANIDINE HCL TABLET, 4 MG, 1 TABLET NEEDED, ORALLY, THREE TIMES A DAY CONTINUE GABAPENTIN TABLET, 600 MG, 1 TABLET, ORALLY, Q8H TID CONTINUE DICLOFENAC SODIUM TABLET DELAYED RELEASE, 50 MG, 1 TABLET WITH FOOD OR MILK, ORALLY, THREE TIMES A DAY CONTINUE MOVANTIK TABLET, 12.5 MG, 1 TABLET IN THE MORNING, ORALLY, ONCE A DAY CONTINUE NORCO TABLET, 7.5-325 MG, 1 TABLET NEEDED, ORALLY, EVERY 6 HRS PRN MDD4 CONTINUE MS CONTIN TABLET EXTENDED RELEASE, 30 MG, 1 TABLET, ORALLY, EVERY 12 HRS MDD2 CONTINUE BACLOFEN TABLET, 10 MG, 1 TABLET WITH FOOD OR MILK, ORALLY, Q6H QID NOTES: ISTOP REGISTRY REVIEWED AND DEMONSTRATES COMPLLIANCE. (REF # ) BRINGS IN MEDICATIONS WHICH IS APPROPRIATE FOR WHAT WAS DISPENSED. RECENT URINE TOXICOLOGY REVIEWED. NO UNAUTHORIZED MEDICATIONS. NO ILLICIT SUBSTANCES AND PRESCRIBED MEDICATIONS WERE PRESENT. , RISKS OF NARCOTIC/OPIOD MEDICATIONS INCLUDES BUT IS NOT LIMITED TO RISK OF DEPENDANCE/DEVELOPMENT OF ADDICTION, MOOD DISTURBANCE AND DEPRESSION, OSTEOPOROSIS, HORMONAL AND LABIDAL CHANGES, RESPIRATORY DEPRESSION AND . PATIENT IS ADVISED NOT TO DRIVE OR DRINK ALCOHOL WHILE ON THESE MEDICATIONS. [facility]:INFLAMMATORY ARTHROPATHY/RHEUMATOID/SJOGRENS SYNDROME-MED MGMNT PROCEDURE CODES FA211 ESTABILISHED PATIENT [facility] FAC[facility] CHARGE DISPOSITION & COMMUNICATION FOLLOW UP 2 MONTHS ELECTRONICALLY SIGNED BY NICKY MORENO ON 07/03/2019 AT 12:07 PM EST DISCLAIMER : THIS IS A VISIT SUMMARY EXTRACTED FROM THE [employer] CHART. IT IS NOT A COPY OF THE [employer] PROGRESS NOTE. JORDYN
== END ==
LOC: M PAIN 10:15
PROVIDERS: ATTEND Nurse Practitioner Family
DX: M35.09 Sjogren syndrome with other organ involvement (principal); M19.90 Unspecified osteoarthritis, unspecified site

== ENCOUNTER → 2019-07-11 | Outpatient (CLI) | payer OTHER ==
[2019-07-11 09:36] LABS: ALBUMIN 4.1 GM/DL (3.2-5.2); ALT/SGPT 84 U/L (12-78); BLOOD UREA NITROGEN 20 MG/DL (7-18); CALCIUM LEVEL 9.7 MG/DL (8.5-10.1); CARBON DIOXIDE LEVEL 31 MEQ/L (21-32); CHLORIDE LEVEL 104 MEQ/L (98-107); CHOLESTEROL LEVEL 229 MG/DL (<200); CHOLESTEROL RISK RATIO 6.361 (<5); CREATININE FOR GFR 0.88 MG/DL (0.70-1.30); GLOMERULAR FILTRATION RATE > 60.0 (>60); GLUCOSE, FASTING 106 MG/DL (70-100); HDL CHOLESTEROL 36 MG/DL (>40); LDL CHOLESTEROL 157 MG/DL (<100); NON-HDL-C 193 MG/DL; POTASSIUM SERUM 3.6 MEQ/L (3.5-5.1); SODIUM LEVEL 141 MEQ/L (136-145); TRIGLYCERIDES LEVEL 182 MG/DL (<150)
--- NOTE | 2019-07-11 10:50 | REP ---
Right upper quadrant sonography: History: Elevated liver function studies. Comparison study: No comparison study. Findings: Scanning through the right upper quadrant of the abdomen demonstrates a normal sized, thin-walled gallbladder without evidence of stone or polyp. Common bile duct is normal measuring 0.5 cm in greatest diameter. No focal liver lesion is seen. Liver size is normal. No pancreatic abnormality is observed. No right renal abnormality is seen. There is no evidence of ascites. The right kidney measures and 0.7 x 5.2 x 4.7 cm. Impression: Negative right upper quadrant sonography. Electronically Signed by Washington Cook MD 07/11/2019 10:41 A
== END ==
LOC: M RAD 08:34
PROVIDERS: ATTEND Physician Assistant Medical
DX: Z13.220 Encounter for screening for lipoid disorders (principal); R94.5 Abnormal results of liver function studies

== ENCOUNTER → 2019-09-09 | Outpatient (CLI) | payer OTHER ==
--- NOTE | 2019-09-11 01:49 | ECWPNPC ---
PATIENT NAME: DEIRDRE DUBOSE : 1980 GENDER: MALE VISIT DATE: 09/09/2019 DISCHARGE DATE: 09/09/19 09 VISIT LOCKED DATE TIME: PHYSICIAN: FRANSICO BLACK PHYSICIAN PAGER NO: [phone] RESOURCE: FRANSICO BLACK REASON FOR APPOINTMENT 1. 2 MONTH HISTORY OF PRESENT ILLNESS HISTORY OF PRESENT ILLNESS: PATIENT IS AGREEABLE TO TELEMED VISIT VIA ZOOM. THIS IS A FOLLOW-UP FOR MEDICINE MANAGEMENT FOR CHRONIC LOW BACK PAIN AND GENERALIZED JOINT PAIN SECONDARY TO RHEUMATOID ARTHRITIS AND SJOGRENS SYNDROME. RATING PAIN VAS 6/10. REPORTS THAT CURRENT CHRONIC PAIN MEDICATION IS SOMEWHAT HELPFUL AT REDUCING PAIN AND KEEPING HIM COMFORTABLE. DENIES ADVERSE SIDE EFFECTS. REPORTING AN INCREASE IN PAIN OVER THE PAST FEW DAYS. FOLLOWS WITH RHEUMATOLOGY. CURRENTLY ON HUMIRA BUT IS UNABLE TO USE IT FREQUENTLY DUE TO POTENTIAL FOR INCREASED RISK FOR INFECTION AND SICK PEOPLE AROUND HIM. PAIN THE PATIENT DESCRIBES THE PAIN... FALL RISK SCREENING: SCREENING :NO FALLS REPORTED IN THE LAST YEAR CURRENT MEDICATIONS TAKING TRIAMCINOLONE ACETONIDE 0.1 % PASTE 1 APPLICATION TO CANKER SORES MOUTH/THROAT BEFORE BEDTIME NEEDED TAKING FOLIC ACID 1 MG TABLET 1 TABLET ORALLY ONCE A DAY TAKING HUMIRA PEN 40 MG/0.4ML PEN-INJECTOR KIT DIRECTED SUBCUTANEOUS EVERY 2 WEEKS TAKING NICOTINE POLACRILEX 4 MG GUM 1 PIECE NEEDED MOUTH/THROAT 3X/DAY TAKING ZOFRAN ODT 4 MG TABLET DISPERSIBLE 1 TABLET ON THE TONGUE AND ALLOW TO DISSOLVE ORALLY EVERY 8 HRS TAKING SIMETHICONE 80 MG TABLET CHEWABLE 1 TABLET AFTER MEALS AND AT BEDTIME NEEDED ORALLY FOUR TIMES A DAY TAKING LORAZEPAM 1MG ORAL 3 TIMES A DAY TAKING DULOXETINE HCL 60 MG CAPSULE DELAYED RELEASE PARTICLES 1 CAPSULE ORALLY ONCE A DAY TAKING AMITRIPTYLINE HCL 50 MG TABLET 1 TABLET ORALLY ONCE A DAY TAKING DULOXETINE HCL 30 MG CAPSULE DELAYED RELEASE PARTICLES 1 CAPSULE C 60MG ORALLY ONCE A DAY TAKING TIZANIDINE HCL 4 MG TABLET 1 TABLET NEEDED ORALLY THREE TIMES A DAY TAKING GABAPENTIN 600 MG TABLET 1 TABLET ORALLY Q8H TID TAKING DICLOFENAC SODIUM 50 MG TABLET DELAYED RELEASE 1 TABLET WITH FOOD OR MILK ORALLY THREE TIMES A DAY TAKING MOVANTIK 12.5 MG TABLET 1 TABLET IN THE MORNING ORALLY ONCE A DAY TAKING BACLOFEN 10 MG TABLET 1 TABLET WITH FOOD OR MILK ORALLY Q6H QID TAKING OMEPRAZOLE 40 MG CAPSULE DELAYED RELEASE 1 CAPSULE ORALLY BID TAKING MS CONTIN 30 MG TABLET EXTENDED RELEASE 1 TABLET ORALLY EVERY 12 HRS MDD2 TAKING HYDROCODONE-ACETAMINOPHEN 7.5-325 MG TABLET 1 TABLET NEEDED ORALLY EVERY 6 HRS PRN MDD4 NOT-TAKING NORCO 7.5-325 MG TABLET 1 TABLET NEEDED ORALLY EVERY 6 HRS PRN MDD4 MEDICATION LIST REVIEWED AND RECONCILED WITH THE PATIENT PAST MEDICAL HISTORY ANXIETY GERD BINH SISTER C RECESSIVE TRAIT OF MPS G1 GENETIC LIPID STORAGE DISORDER SYNCOPE-WEARS STOCKINGS PTSD-MARLYN @ [facility] [place]; FEET-DR. ROSAS VISUAL SNOW SYNDROME SJOGREN'S SYNDROME C NEUROPATHY DEGENERATIVE DISC DISEASE LUMBAR SPINE C NEUROPATHY MACULAR DEGENERATION [facility] ALLERGIES N.K.D.A. SURGICAL HISTORY VASECTOMY 09/19/2017 COLONOSCOPY -- [facility] 09/2017 FAMILY HISTORY FATHER: 59 YRS, DIAGNOSED WITH HYPERTENSION, UNSPECIFIED HEART DISEASE, DIABETES MOTHER: ALIVE, HYPERTENSION SIBLINGS: ALIVE, OTHER SPECIFIED CONDITIONS INFLUENCING HEALTH STATUS SON(S): ALIVE DAUGHTER(S): ALIVE 2 BROTHER(S) , 1 SISTER(S) - HEALTHY. 2 SON(S) , 1 DAUGHTER(S) - HEALTHY. FATHER- KIDNEY FAILURE STAGE 5NO FAMILY H/O MS FATHER- KIDNEY FAILURE STAGE 4NO FAMILY H/O MS. SOCIAL HISTORY GENERAL: TOBACCO USE ARE YOU A:CURRENT SMOKER STARTED SMOKING IN TEENAGE YEARS AND QUIT 2017. SMOKED 5 CIGARETTES PER DAY HOW MANY CIGARETTES A DAY DO YOU SMOKE?5 OR LESS 2-3 DAY ARE YOU INTERESTED IN QUITTING?THINKING ABOUT QUITTING COUNSELED THE PATIENT ON SMOKING CESSATION, EDUCATION [id number]/14/2019 SMOKING CESSATION INFORMATION GIVEN12/18/2018 PREVIOUS QUIT ATTEMPTS?YES, WITHIN THE LAST 6 MONTHS. LATEX QUESTIONNAIRE LATEX ALLERGY : HAVE YOU EVER DEVELOPED ANY TYPE OF REACTION AFTER HANDLING LATEX PRODUCTS SUCH RUBBER GLOVES, CONDOMS, DIAPHRAGMS, BALLOONS, SOCKS, OR UNDERWEAR?NO LATEX ALLERGY : HAVE YOU EVER DEVELOPED ANY TYPE OF REACTION DURING OR AFTER DENTAL APPOINTMENT, VAGINAL/RECTAL EXAMINATION, SURGICAL PROCEDURE, OR ANY OTHER EXPOSURE?NO DATE ASKED : 10/29/2018 LATEX RISK : HAVE YOU EVER HAD ANY DIFFICULTY BREATHING OR HIVES AFTER EATING OR HANDLING ANY FRUITS, OR VEGETABLES; SUCH KIWI, BANANAS, STONE FRUITS, OR CHESTNUTSNO LATEX RISK : DO YOU HAVE A PREVIOUS PERSONAL HISTORY OF MORE THAN NINE SURGERIES, SPINA BIFIDA, OR REPEATED CATHERIZATIONS? NO LATEX RISK : ARE YOU FREQUENTLY EXPOSED TO LATEX PRODUCTS IN YOUR OCCUPATION?NO ALCOHOL SCREENING DID YOU HAVE A DRINK CONTAINING ALCOHOL IN THE PAST YEAR?NO POINTS0 INTERPRETATIONNEGATIVE RECREATIONAL DRUG USE DRUG USE?NO PATIENT DENIES ABUSE OR MISSUSED OF ANY MEDICATION DENIES 09/09/19 CAFFEINE CAFFEINE USE?YES ENERGY DRINKS = 2 PER DAY TEA = A COUPLE GLASSES PER DAY COFFEE = 1 CUP PER DAY SEXUAL HX HAD SEX IN THE LAST 12 MONTHS (VAGINAL, ORAL, OR ANAL)?YES WITHWOMEN ONLY USE PROTECTION?NO HAVE YOU EVER HAD AN STD?NO HIV / HEP-C SCREENING HIV TEST OFFERED TO PATIENT:YES DATE OFFERED:07/18/2017 TEST ACCEPTED:NO HEP-C TEST OFFERED TO PATIENT:YES DATE OFFERED:07/18/2017 REASON:PATIENT DECLINED TEST ACCEPTED:NO REASON:PATIENT DECLINED BROCHURE PROVIDED TO PATIENTNO MORMONISM [id number] SIKHISM NO ANABAPTIST BELIEFS THAT WOULD IMPACT HEALTH CARE. LANGUAGE LANGUAGES SPOKEN:SYRIAC EDUCATION LEVEL OF EDUCATION:NOT FINISHED COLLEGE LEARNING BARRIERS / SPECIAL NEEDS CHANGE FROM LAST VISIT?YES MRI IMAGING BARRIERS TO LEARNING?NO HEARING IMPAIRED?YES TINNITUS BILATERAL VISION IMPAIRED?YES VISUAL SNOW SYNDROME COGNITIVELY IMPAIRED?NO :CORRECTIVE LENSES READINESS TO LEARN?YES LEARNING PREFERENCES?NO LEARNING CAPABILITIES PRESENT?YES EMOTIONAL BARRIERS?NO SPECIAL DEVICES?YES :CANE MEDICAL LEADER NEEDED?NO DOMESTIC VIOLENCE DO YOU FEEL SAFE IN YOUR ENVIRONMENT?YES OCCUPATION: [employer]. DIET: REGULAR. EXERCISE: NONE "NOT ANYMORE". MARITAL STATUS: . OTHERS AT HOME: CHILDREN. NEW PATIENT PAIN DIARY PATIENT DESCRIBES PAIN :ACHING, HAVE IT ALL THE TIME, THROBBING, SORE FROM 0-10, WHAT LEVEL IS YOUR PAIN TODAY?6 09/09/19 PRECIPITATING FACTORS MOVEMENT, WALKING TOO MUCH ALLEVIATING FACTORS LAYING DOWN PAIN CLINIC PFS, CLERGY, PUBLIC HEALTH REFERRALS PFS REFERRAL NEEDED?NO CLERGY REFERRAL NEEDED?NO PUBLIC HEALTH REFERRAL NEEDED?NO WAS THE PROVIDER NOTIFIED OF ANY PERTINENT INFO?NO N/A HAS THE PATIENT BEEN EDUCATED REGARDING HIS/HER PLAN OF CARE?YES HAS THE PATIENT BEEN EDUCATED REGARDING PAIN, THE RISK FOR PAIN, THE IMPORTANCE OF EFFECTIVE PAIN MANAGEMENT, AND THE PAIN ASSESSMENT PROCESS?YES HOUSING: RENTS APARTMENT. ADVANCE DIRECTIVE ADVANCE DIRECTIVE DISCUSSED WITH PATIENT:YES PATIENT GIVEN HCP INFORMATION AT THIS TIME, DECLINED ASSISTANCE IN FILLING THE FORM AT THIS TIME. 10/11/17 1000 REVIEWED WITH PT AD01/15/18 1120 REVIEWED WITH PT BVREVIEWED WITH PATIENT 06/04/18 1406 JSREVIEWED WITH PATIENT 10/29/18 1448 JSREVIEWED WITH PATIENT 12/18/18 1433 NLJREVIEWED WITH PATIENT 06/04/19 0911 BV. HOSPITALIZATION/MAJOR DIAGNOSTIC PROCEDURE SLEEP STUDY REVIEW OF SYSTEMS REVIEWED BY: PROVIDER: FRANSICO SAUNDERS . CONSTITUTIONAL: ANY CHANGE IN YOUR MEDICAL CONDITION? NO . CHILLS NO . FEVER NO . INFECTION: DO YOU HAVE NEW INFECTIONS? NO . DO YOU HAVE HISTORY OF MRSA? NO . MUSCULOSKELETAL: ANY NEW PATTERNS OF PAIN OR NUMBNESS? NO . GASTROENTEROLOGY: ANY NEW CHANGE IN BOWEL CONTROL? NO . GENITOURINARY: ANY NEW CHANGE IN BLADDER CONTROL? NO . IS THERE A CHANCE YOU COULD BE ? NO . HEMATOLOGY/LYMPH: DO YOU TAKE ANY BLOOD THINNERS? (FOR EXAMPLE- COUMADIN, PLAVIX, AGGRENOX, PLATEL, PRADAXA, OR XARELTO) NO . WHEN WAS YOUR LAST DOSE? DATE: TIME: . NEUROLOGY: HAVE YOU FALLEN IN THE PAST 12 MONTHS? NO . ANY NEW EXTREMITY NUMBNESS OR WEAKNESS? NO . CARDIOLOGY: DO YOU HAVE A PACEMAKER OR DEFIBRILLATOR? NO . RESPIRATORY: HAVE YOU BEEN SICK IN THE PAST WEEK? NO . FEVER NO . FLU LIKE SYMPTOMS? NO . COUGH NO . INTEGUMENTARY: DO YOU HAVE ANY RASHES OR OPEN SORES? YES - CANKER SURES . ALLERGIC/IMMUNO: ARE YOU ALLERGIC TO IV DYE? NO . ANY NEW ALLERGIES? NO . PSYCHIATRIC: DO YOU HAVE THOUGHTS OF HURTING YOURSELF OR SOMEONE ELSE? NO . ARE YOU ABUSED, NEGLECTED, OR IN AN UNSAFE ENVIRONMENT? NO . ENDOCRINOLOGY: ARE YOU DIABETIC? NO . OTHER: DO YOU NEED ANY PRESCRIPTIONS? YES . IF YES, PLEASE LIST: HYDROCODONE, MORPHINE . ANY NEW PROBLEMS WITH YOUR MEDICATIONS? NO . WHEN DID YOU LAST EAT? ____ . WHEN DID YOU LAST DRINK? ____ . WHAT DID YOU LAST DRINK? ____ . NAME OF PERSON DRIVING YOU HOME? ____ . DO YOU HAVE ANY OTHER QUESTIONS OR CONCERNS NO. NO VITALS OBTAINED DUE TO VIRTUAL VISIT. PRE-SCREENING CALL COMPLETED 09/09/19 1030. Kathleen MCNEAL RN . EXAMINATION GENERAL EXAMINATION: GENERALNO ACUTE DISTRESS, WELL NOURISHED AND HYDRATED. PSYCHAPPROPRIATE MOOD AND AFFECT . FACE:UNREMARKABLE. ASSESSMENTS SJOGREN'S SYNDROME WITH OTHER ORGAN INVOLVEMENT - M35.09 (PRIMARY) CHRONIC PRESCRIPTION OPIATE USE - Z79.891 TREATMENT SJOGREN'S SYNDROME WITH OTHER ORGAN INVOLVEMENT CONTINUE DULOXETINE HCL CAPSULE DELAYED RELEASE PARTICLES, 60 MG, 1 CAPSULE, ORALLY, ONCE A DAY CONTINUE TIZANIDINE HCL TABLET, 4 MG, 1 TABLET NEEDED, ORALLY, THREE TIMES A DAY CONTINUE DULOXETINE HCL CAPSULE DELAYED RELEASE PARTICLES, 30 MG, 1 CAPSULE C 60MG, ORALLY, ONCE A DAY CONTINUE MOVANTIK TABLET, 12.5 MG, 1 TABLET IN THE MORNING, ORALLY, ONCE A DAY CONTINUE BACLOFEN TABLET, 10 MG, 1 TABLET WITH FOOD OR MILK, ORALLY, Q6H QID REFILL MS CONTIN TABLET EXTENDED RELEASE, 30 MG, 1 TABLET, ORALLY, EVERY 12 HRS MDD2, 30 DAYS, 60, REFILLS 0 REFILL HYDROCODONE-ACETAMINOPHEN TABLET, 7.5-325 MG, 1 TABLET NEEDED, ORALLY, EVERY 6 HRS PRN MDD4, 30 DAYS, 120, REFILLS 0 NOTES: ISTOP REGISTRY REVIEWED AND DEMONSTRATES COMPLLIANCE. . RECENT URINE TOXICOLOGY REVIEWED. NO UNAUTHORIZED MEDICATIONS. NO ILLICIT SUBSTANCES AND PRESCRIBED MEDICATIONS WERE PRESENT. GET URINE TOX AT NEXT VISIT TOTAL TIME SPENT DURING TELEMED VISIT WAS APPROXIMATELY 12 MINUTES. DISPOSITION & COMMUNICATION FOLLOW UP 4-6WKS IN CLINIC-MED MGMNT/UTOX (REASON: INFLAMMATORY ARTHROPATHY) ELECTRONICALLY SIGNED BY NICKY MORENO ON 09/10/2019 AT 02:35 PM EDT DISCLAIMER : THIS IS A VISIT SUMMARY EXTRACTED FROM THE [employer] CHART. IT IS NOT A COPY OF THE [employer] PROGRESS NOTE. MTDD
== END ==
LOC: M PAIN 10:45 → M TMPAIN 10:45
PROVIDERS: ATTEND Nurse Practitioner Family
DX: M35.09 Sjogren syndrome with other organ involvement (principal); F17.210 Nicotine dependence, cigarettes, uncomplicated; Z79.891 Long term (current) use of opiate analgesic; Z79.899 Other long term (current) drug therapy

== ENCOUNTER → 2019-10-30 | Outpatient (CLI) | payer MEDICARE, MEDICAID ==
--- NOTE | 2019-11-04 02:00 | ECWPNPC ---
PATIENT NAME: DEIRDRE DUBOSE : 1980 GENDER: MALE VISIT DATE: 10/30/2019 DISCHARGE DATE: 10/30/19 1448 VISIT LOCKED DATE TIME: PHYSICIAN: FRANSICO BLACK PHYSICIAN PAGER NO: [phone] RESOURCE: FRANSICO BLACK REASON FOR APPOINTMENT 1. INFLAMMATORY ARTHROPATHY HISTORY OF PRESENT ILLNESS GENERAL: HERE FOR FOLLOW-UP OF CHRONIC GENERALIZED JOINT PAIN AND LOW BACK PAIN WITH A HISTORY OF INFLAMMATORY ARTHROPATHY. FINDS CURRENT CHRONIC PAIN MEDICATIONS HELPFUL AT REDUCING PAIN AND KEEPING HIM FUNCTIONAL. DENIES ADVERSE SIDE EFFECTS. REVIEWED TREATMENT PLAN. -. FALL RISK SCREENING: SCREENING :NO FALLS REPORTED IN THE LAST YEAR PAIN SCREENING: PATIENT HAS A COMPLAINT OF ACUTE OR CHRONIC PAIN :YES 10/30/19 INTENSITY OF PAIN (SCALE OF 1 TO 10):7 WHAT DOES YOUR PAIN FEEL LIKE:ACHING, CONTINOUS, SHARP, SHOOTING PAIN IS INCREASED BY: WORSE IN AM, ACTIVITY PAIN IS DECREASED BY: BRACES FOR SUPPORT, WALKER, CANE, MEDS NURSING NOTE: -. PAIN CENTER INTAKE QUESTIONS: DO YOU HAVE A HISTORY OF MRSA? :NO DO YOU TAKE A BLOOD THINNERS? :NO DO YOU HAVE ANY BLEEDING DISORDERS? :NO ANY NEW NUMBNESS OR WEAKNESS IN YOUR LEGS OR ARMS? :YES ANY PACEMAKER,DEFIBRILLATOR, OR DORSAL COLUMN STIMULATOR? :NO DO YOU HAVE ANY RASHES OR OPEN SORES? :NO ARE YOU ALLERGIC TO IV DYE? :NO ARE YOU DIABETIC? :NO ANY NEW PROBLEMS WITH YOUR MEDICATIONS? :YES PSYCH REFILLED MEDS AND REFILLED GABAPENTIN BY ACCIDENT WHICH HAS SET OFF FREQUENCY OF REFILLS HAVE YOU RECEIVED A VACCINE IN THE PAST 30 DAYS? :NO DO YOU PLAN TO RECEIVE A VACCINE IN THE NEXT 21 DAYS? :NO DO YOU NEED ANY PRESCRIPTION? :YES JOSIANE AND DICLOFENAC AND NORCO AND MORPHINE DO YOU TAKE ANY IMMUNOSUPPRESSIVE MEDICATIONS? :YES HUMIRA IS THERE A CHANCE YOU COULD BE ? :NO ARE YOU BREAST FEEDING? :NO CURRENT MEDICATIONS TAKING TRIAMCINOLONE ACETONIDE 0.1 % PASTE 1 APPLICATION TO CANKER SORES MOUTH/THROAT BEFORE BEDTIME NEEDED TAKING HUMIRA PEN 40 MG/0.4ML PEN-INJECTOR KIT DIRECTED SUBCUTANEOUS EVERY 2 WEEKS TAKING NICOTINE POLACRILEX 4 MG GUM 1 PIECE NEEDED MOUTH/THROAT 3X/DAY TAKING ZOFRAN ODT 4 MG TABLET DISPERSIBLE 1 TABLET ON THE TONGUE AND ALLOW TO DISSOLVE ORALLY EVERY 8 HRS TAKING SIMETHICONE 80 MG TABLET CHEWABLE 1 TABLET AFTER MEALS AND AT BEDTIME NEEDED ORALLY FOUR TIMES A DAY TAKING LORAZEPAM 1MG ORAL 3 TIMES A DAY TAKING AMITRIPTYLINE HCL 50 MG TABLET 1 TABLET ORALLY ONCE A DAY TAKING DICLOFENAC SODIUM 50 MG TABLET DELAYED RELEASE 1 TABLET WITH FOOD OR MILK ORALLY THREE TIMES A DAY TAKING OMEPRAZOLE 40 MG CAPSULE DELAYED RELEASE 1 CAPSULE ORALLY BID TAKING DULOXETINE HCL 60 MG CAPSULE DELAYED RELEASE PARTICLES 1 CAPSULE ORALLY ONCE A DAY TAKING DULOXETINE HCL 30 MG CAPSULE DELAYED RELEASE PARTICLES 1 CAPSULE C 60MG ORALLY ONCE A DAY TAKING MOVANTIK 12.5 MG TABLET 1 TABLET IN THE MORNING ORALLY ONCE A DAY TAKING BACLOFEN 10 MG TABLET 1 TABLET WITH FOOD OR MILK ORALLY Q6H QID TAKING TIZANIDINE HCL 4 MG TABLET 1 TABLET NEEDED ORALLY THREE TIMES A DAY TAKING GABAPENTIN 600 MG TABLET 1 TABLET ORALLY Q8H TID TAKING HYDROCODONE-ACETAMINOPHEN 7.5-325 MG TABLET 1 TABLET NEEDED ORALLY EVERY 6 HRS PRN MDD4 TAKING MS CONTIN 30 MG TABLET EXTENDED RELEASE 1 TABLET ORALLY EVERY 12 HRS MDD2 NOT-TAKING FOLIC ACID 1 MG TABLET 1 TABLET ORALLY ONCE A DAY NOT-TAKING NORCO 7.5-325 MG TABLET 1 TABLET NEEDED ORALLY EVERY 6 HRS PRN MDD4 MEDICATION LIST REVIEWED AND RECONCILED WITH THE PATIENT PAST MEDICAL HISTORY ANXIETY GERD BINH - USES CPAP SISTER C RECESSIVE TRAIT OF MPS G1 GENETIC LIPID STORAGE DISORDER SYNCOPE-WEARS STOCKINGS PTSD-MARLYN @ [facility] [place]; FEET-DR. ROSAS VISUAL SNOW SYNDROME SJOGREN'S SYNDROME C NEUROPATHY DEGENERATIVE DISC DISEASE LUMBAR SPINE C NEUROPATHY MACULAR DEGENERATION [facility] ALLERGIES N.K.D.A. SURGICAL HISTORY VASECTOMY 09/19/2017 COLONOSCOPY -- [facility] 09/2017 FAMILY HISTORY FATHER: 59 YRS, DIAGNOSED WITH UNSPECIFIED HEART DISEASE, DIABETES, HYPERTENSION MOTHER: ALIVE, HYPERTENSION SIBLINGS: ALIVE, OTHER SPECIFIED CONDITIONS INFLUENCING HEALTH STATUS SON(S): ALIVE DAUGHTER(S): ALIVE 2 BROTHER(S) , 1 SISTER(S) - HEALTHY. 2 SON(S) , 1 DAUGHTER(S) - HEALTHY. FATHER- KIDNEY FAILURE STAGE 5NO FAMILY H/O MS FATHER- KIDNEY FAILURE STAGE 4NO FAMILY H/O MS. SOCIAL HISTORY GENERAL: TOBACCO USE ARE YOU A:CURRENT SMOKER STARTED SMOKING IN TEENAGE YEARS AND QUIT 2018. SMOKED 5 CIGARETTES PER DAY HOW MANY CIGARETTES A DAY DO YOU SMOKE?5 OR LESS 2-3 DAY ARE YOU INTERESTED IN QUITTING?THINKING ABOUT QUITTING COUNSELED THE PATIENT ON SMOKING CESSATION, EDUCATION [id number]/14/2019 SMOKING CESSATION INFORMATION GIVEN12/18/2018 PREVIOUS QUIT ATTEMPTS?YES, WITHIN THE LAST 6 MONTHS. LATEX QUESTIONNAIRE LATEX ALLERGY : HAVE YOU EVER DEVELOPED ANY TYPE OF REACTION AFTER HANDLING LATEX PRODUCTS SUCH RUBBER GLOVES, CONDOMS, DIAPHRAGMS, BALLOONS, SOCKS, OR UNDERWEAR?NO LATEX ALLERGY : HAVE YOU EVER DEVELOPED ANY TYPE OF REACTION DURING OR AFTER DENTAL APPOINTMENT, VAGINAL/RECTAL EXAMINATION, SURGICAL PROCEDURE, OR ANY OTHER EXPOSURE?NO DATE ASKED : 10/29/2018 LATEX RISK : HAVE YOU EVER HAD ANY DIFFICULTY BREATHING OR HIVES AFTER EATING OR HANDLING ANY FRUITS, OR VEGETABLES; SUCH KIWI, BANANAS, STONE FRUITS, OR CHESTNUTSNO LATEX RISK : DO YOU HAVE A PREVIOUS PERSONAL HISTORY OF MORE THAN NINE SURGERIES, SPINA BIFIDA, OR REPEATED CATHERIZATIONS? NO LATEX RISK : ARE YOU FREQUENTLY EXPOSED TO LATEX PRODUCTS IN YOUR OCCUPATION?NO ALCOHOL SCREENING DID YOU HAVE A DRINK CONTAINING ALCOHOL IN THE PAST YEAR?NO POINTS0 INTERPRETATIONNEGATIVE RECREATIONAL DRUG USE DRUG USE?NO PATIENT DENIES ABUSE OR MISSUSED OF ANY MEDICATION DENIES 09/09/19 CAFFEINE CAFFEINE USE?YES ENERGY DRINKS = 2 PER DAY TEA = A COUPLE GLASSES PER DAY COFFEE = 1 CUP PER DAY SEXUAL HX HAD SEX IN THE LAST 12 MONTHS (VAGINAL, ORAL, OR ANAL)?YES WITHWOMEN ONLY USE PROTECTION?NO HAVE YOU EVER HAD AN STD?NO HIV / HEP-C SCREENING HIV TEST OFFERED TO PATIENT:YES DATE OFFERED:07/18/2017 TEST ACCEPTED:NO HEP-C TEST OFFERED TO PATIENT:YES DATE OFFERED:07/18/2017 REASON:PATIENT DECLINED TEST ACCEPTED:NO REASON:PATIENT DECLINED BROCHURE PROVIDED TO PATIENTNO SABIANISM [id number] CONFUCIANISM NO GNOSTICISM BELIEFS THAT WOULD IMPACT HEALTH CARE. LANGUAGE LANGUAGES SPOKEN:BELGIAN EDUCATION LEVEL OF EDUCATION:NOT FINISHED COLLEGE LEARNING BARRIERS / SPECIAL NEEDS CHANGE FROM LAST VISIT?YES MRI IMAGING BARRIERS TO LEARNING?NO HEARING IMPAIRED?YES TINNITUS BILATERAL VISION IMPAIRED?YES VISUAL SNOW SYNDROME COGNITIVELY IMPAIRED?NO :CORRECTIVE LENSES READINESS TO LEARN?YES LEARNING PREFERENCES?NO LEARNING CAPABILITIES PRESENT?YES EMOTIONAL BARRIERS?NO SPECIAL DEVICES?YES :CANE CRYSTAL FLAT GRINDER NEEDED?NO DOMESTIC VIOLENCE DO YOU FEEL SAFE IN YOUR ENVIRONMENT?YES OCCUPATION: [employer]. DIET: REGULAR. EXERCISE: NONE "NOT ANYMORE". MARITAL STATUS: . OTHERS AT HOME: CHILDREN. NEW PATIENT PAIN DIARY PATIENT DESCRIBES PAIN :ACHING, HAVE IT ALL THE TIME, THROBBING, SORE FROM 0-10, WHAT LEVEL IS YOUR PAIN TODAY?6 09/09/19 PRECIPITATING FACTORS MOVEMENT, WALKING TOO MUCH ALLEVIATING FACTORS LAYING DOWN PAIN CLINIC PFS, CLERGY, PUBLIC HEALTH REFERRALS PFS REFERRAL NEEDED?NO CLERGY REFERRAL NEEDED?NO PUBLIC HEALTH REFERRAL NEEDED?NO WAS THE PROVIDER NOTIFIED OF ANY PERTINENT INFO?NO N/A HAS THE PATIENT BEEN EDUCATED REGARDING HIS/HER PLAN OF CARE?YES HAS THE PATIENT BEEN EDUCATED REGARDING PAIN, THE RISK FOR PAIN, THE IMPORTANCE OF EFFECTIVE PAIN MANAGEMENT, AND THE PAIN ASSESSMENT PROCESS?YES HOUSING: RENTS APARTMENT. ADVANCE DIRECTIVE ADVANCE DIRECTIVE DISCUSSED WITH PATIENT:YES PATIENT GIVEN HCP INFORMATION AT THIS TIME, DECLINED ASSISTANCE IN FILLING THE FORM AT THIS TIME. 10/11/17 1000 REVIEWED WITH PT AD01/15/18 1120 REVIEWED WITH PT BVREVIEWED WITH PATIENT 06/04/18 1406 JSREVIEWED WITH PATIENT 10/29/18 1448 JSREVIEWED WITH PATIENT 12/18/18 1433 NLJREVIEWED WITH PATIENT 06/04/19 0911 BV. HOSPITALIZATION/MAJOR DIAGNOSTIC PROCEDURE SLEEP STUDY REVIEW OF SYSTEMS CONSTITUTIONAL: ANY RECENT FEVER NO . CHILLS NO . WEIGHT CHANGE OF UNKNOWN REASONS NO . GASTROENTEROLOGY: NEW UNEXPLAINABLE CHANGES IN BOWEL CONTROL NO . CONSTIPATION NO . GENITOURINARY: ANY NEW CHANGE IN BLADDER CONTROL? NO . NEUROLOGY: NEW ONSET DIZZINESS OR NEUROLOGICAL CHANGES NOT MENTIONED NO . NEW NUMBNESS OR PAIN PATTERNS NOT MENTIONED AND PERTINENT TO TODAY'S VISIT NO . CARDIOLOGY: NEW CHEST PRESSURE NO . NEW CHEST PAIN NO . RESPIRATORY: UNEXPLAINABLE COUGH NO . NEW SHORTNESS OF BREATH NO . VITAL SIGNS WT 285.4 LBS, HT 70 IN, BMI 40.95 INDEX, BP 128/76 MM HG, HR 103 /MIN, RR 18 /MIN, TEMP 97.7 F, OXYGEN SAT % 96%, SAFE IN ENV? (Y/N) YES, NA INITIALS SC 13:36, REVIEWED BY: LS. EXAMINATION GENERAL EXAMINATION: GENERALNO ACUTE DISTRESS, WELL NOURISHED AND HYDRATED. PSYCHAPPROPRIATE MOOD AND AFFECT . FACE:UNREMARKABLE. LUNGS:CLEAR TO AUSCULTATION BILATERALLY, NO WHEEZES, RHONCHI, RALES. HEART:NO MURMURS, REGULAR RATE AND RHYTHM. ASSESSMENTS SJOGREN'S SYNDROME WITH OTHER ORGAN INVOLVEMENT - M35.09 (PRIMARY) CHRONIC PRESCRIPTION OPIATE USE - Z79.891 TREATMENT SJOGREN'S SYNDROME WITH OTHER ORGAN INVOLVEMENT REFILL GABAPENTIN TABLET, 600 MG, 1 TABLET, ORALLY, Q8H TID, 30 DAYS, 90, REFILLS 5 REFILL HYDROCODONE-ACETAMINOPHEN TABLET, 7.5-325 MG, 1 TABLET NEEDED, ORALLY, EVERY 6 HRS PRN MDD4, 30 DAYS, 120, REFILLS 0 REFILL MS CONTIN TABLET EXTENDED RELEASE, 30 MG, 1 TABLET, ORALLY, EVERY 12 HRS MDD2, 30 DAYS, 60, REFILLS 0 REFILL DICLOFENAC SODIUM TABLET DELAYED RELEASE, 50 MG, 1 TABLET WITH FOOD OR MILK, ORALLY, THREE TIMES A DAY, 30 DAYS, 90 TABLET, REFILLS 5 NOTES: ISTOP REGISTRY REVIEWED AND DEMONSTRATES COMPLLIANCE. RECENT URINE TOXICOLOGY REVIEWED. NO UNAUTHORIZED MEDICATIONS. NO ILLICIT SUBSTANCES AND PRESCRIBED MEDICATIONS WERE PRESENT. BRING NARCOTIC PAIN MEDICATION TO ALL FUTURE APPOINTMENTS URINE TOX TODAY , RISKS OF NARCOTIC/OPIOD MEDICATIONS INCLUDES BUT IS NOT LIMITED TO RISK OF DEPENDANCE/DEVELOPMENT OF ADDICTION, MOOD DISTURBANCE AND DEPRESSION, OSTEOPOROSIS, HORMONAL AND LABIDAL CHANGES, RESPIRATORY DEPRESSION AND . PATIENT IS ADVISED NOT TO DRIVE OR DRINK ALCOHOL WHILE ON THESE MEDICATIONS. PROCEDURE CODES FA211 ESTABILISHED PATIENT [facility] CHARGE DISPOSITION & COMMUNICATION FOLLOW UP 4 MONTHS (REASON: MED MANAGEMENT) ELECTRONICALLY SIGNED BY NICKY MORENO ON 11/03/2019 AT 09:36 AM EDT DISCLAIMER : THIS IS A VISIT SUMMARY EXTRACTED FROM THE [email or web address] CHART. IT IS NOT A COPY OF THE [employer] PROGRESS NOTE. MTDD
== END ==
LOC: M PAIN 13:15
PROVIDERS: ATTEND Nurse Practitioner Family
DX: M35.09 Sjogren syndrome with other organ involvement (principal); Z79.891 Long term (current) use of opiate analgesic

== ENCOUNTER → 2020-07-09 | Outpatient (CLI) | payer MEDICARE, MEDICAID ==
--- NOTE | 2020-07-17 00:32 | ECWPNPC ---
PATIENT NAME: DEIRDRE DUBOSE : 1980 GENDER: MALE VISIT DATE: 07/09/2020 DISCHARGE DATE: 07/09/20 1529 VISIT LOCKED DATE TIME: PHYSICIAN: FRANSICO BLACK PHYSICIAN PAGER NO: ACTIVE RESOURCE: FRANSICO BLACK REASON FOR APPOINTMENT 1. CHRONIC PAIN - OK TO BE SEEN PER ABIODUN HISTORY OF PRESENT ILLNESS DEPRESSION SCREENING: PHQ-9 INTERPRETATIONMODERATE DEPRESSION PHQ-2 (2015 EDITION) LITTLE INTEREST OR PLEASURE IN DOING THINGS?MORE THAN HALF THE DAYS FEELING DOWN, DEPRESSED, OR HOPELESS?DECLINED TO SPECIFY TOTAL SCORE2 GENERAL: HERE FOR FOLLOW-UP OF CHRONIC GENERALIZED JOINT PAIN AND MEDICATION MANAGEMENT. HAS BEEN SEVERAL MONTHS SINCE HIS LAST VISIT. 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 HE IS VERY AFRAID TO GO OUT IN [place] [id number] ENVIRONMENT. ALSO HE HAS BEEN SICK ON SEVERAL OCCASIONS. HE IS AWARE THAT WE WOULD NEED TO SEE HIM IN HERE AT LEAST EVERY 3 MONTHS FOR MANAGEMENT OF NARCOTIC PAIN MEDICATIONS. OVERALL FINDS MEDICATIONS EFFECTIVE AT REDUCING PAIN AND KEEPING HIM FUNCTIONAL. DENIES ADVERSE EFFECTS OF MEDICATION.-. FALL RISK SCREENING: SCREENING : NO FALLS REPORTED IN THE LAST YEAR. PAIN SCREENING: PATIENT HAS A COMPLAINT OF ACUTE OR CHRONIC PAIN :YES LOCATION OF PAIN:BOTH SHOULDERS, LOW BACK, KNEES INTENSITY OF PAIN (SCALE OF 1 TO 10):6 WHAT DOES YOUR PAIN FEEL LIKE:ACHING, THROBBING, SHOOTING DURATION:CONTINOUS, CONSTANT, ALL DAY PAIN IS INCREASED BY:ACTIVITIES PAIN IS DECREASED BY:USE OF PAIN MEDICATIONS NURSING NOTE: -. PAIN CENTER INTAKE QUESTIONS: DO YOU HAVE A HISTORY OF MRSA? :NO DO YOU TAKE A BLOOD THINNERS? :NO DO YOU HAVE ANY BLEEDING DISORDERS? :NO ANY NEW NUMBNESS OR WEAKNESS IN YOUR LEGS OR ARMS? :NO ANY PACEMAKER,DEFIBRILLATOR, OR DORSAL COLUMN STIMULATOR? :NO DO YOU HAVE ANY RASHES OR OPEN SORES? :NO ARE YOU ALLERGIC TO IV DYE? :NO ARE YOU DIABETIC? :NO ANY NEW PROBLEMS WITH YOUR MEDICATIONS? :NO HAVE YOU RECEIVED A VACCINE IN THE PAST 30 DAYS? :YES IF SO WHAT VACCINE AND WHEN? 07/05/2020 COVID 1ST DO YOU PLAN TO RECEIVE A VACCINE IN THE NEXT 21 DAYS? :YES IF SO WHAT VACCINE AND WHEN? COVID 2ND 08/02/2020 DO YOU NEED ANY PRESCRIPTION? :NO DO YOU TAKE ANY IMMUNOSUPPRESSIVE MEDICATIONS? :YES HUMIRA IS THERE A CHANCE YOU COULD BE ? :NO ARE YOU BREAST FEEDING? :NO CURRENT MEDICATIONS TAKING TRIAMCINOLONE ACETONIDE 0.1 % PASTE 1 APPLICATION TO CANKER SORES MOUTH/THROAT BEFORE BEDTIME NEEDED TAKING HUMIRA PEN 40 MG/0.4ML PEN-INJECTOR KIT DIRECTED SUBCUTANEOUS EVERY 2 WEEKS TAKING OMEPRAZOLE 40 MG CAPSULE DELAYED RELEASE 1 CAPSULE ORALLY BID TAKING HYDROCODONE-ACETAMINOPHEN 7.5-325 MG TABLET 1 TABLET NEEDED ORALLY EVERY 6 HRS PRN MDD4 TAKING DICLOFENAC SODIUM 50 MG TABLET DELAYED RELEASE 1 TABLET WITH FOOD OR MILK ORALLY THREE TIMES A DAY TAKING BACLOFEN 10 MG TABLET 1 TABLET WITH FOOD OR MILK ORALLY Q6H QID TAKING OMEPRAZOLE 40 MG CAPSULE DELAYED RELEASE 1 CAPSULE ORALLY BID TAKING SIMETHICONE 80 MG TABLET CHEWABLE 1 TABLET AFTER MEALS AND AT BEDTIME NEEDED ORALLY FOUR TIMES A DAY TAKING COLACE 100 MG CAPSULE 1 CAPSULE NEEDED ORALLY BID TAKING ZOFRAN ODT 4 MG TABLET DISPERSIBLE 1 TABLET ON THE TONGUE AND ALLOW TO DISSOLVE ORALLY EVERY 8 HRS TAKING MOVANTIK 12.5 MG TABLET 1 TABLET IN THE MORNING ORALLY ONCE A DAY TAKING DULOXETINE HCL 60 MG CAPSULE DELAYED RELEASE PARTICLES 1 CAPSULE ORALLY ONCE A DAY TAKING AMITRIPTYLINE HCL 50 MG TABLET 1 TABLET ORALLY ONCE A DAY TAKING LORAZEPAM 1MG ORAL DAILY TAKING BUPROPION HCL ER (XL) 300 MG TABLET EXTENDED RELEASE 24 HOUR 1 TABLET IN THE MORNING ORALLY ONCE A DAY TAKING DULOXETINE HCL 30 MG CAPSULE DELAYED RELEASE PARTICLES 1 CAPSULE C 60MG ORALLY ONCE A DAY TAKING GABAPENTIN 600 MG TABLET 1 TABLET ORALLY Q8H TID TAKING TIZANIDINE HCL 4 MG TABLET 1 TABLET NEEDED ORALLY THREE TIMES A DAY TAKING OMEPRAZOLE 40 MG CAPSULE DELAYED RELEASE TAKE ONE CAPSULE BY MOUTH TWICE A DAY TAKING MS CONTIN 30 MG TABLET EXTENDED RELEASE 1 TAB DIRECTED ORALLY 1 RYLEE X 7 DAYS THEN D/C MDD1 TAKING MORPHINE SULFATE ER 15 MG TABLET EXTENDED RELEASE 1 TAB DIRECTED ORALLY 1TAB QD X7D,1 TAB 2XD X7D,1 TAB QDX15D THEN STOP NOT-TAKING HYDROCODONE-ACETAMINOPHEN 7.5-325 MG TABLET 1 TABLET NEEDED ORALLY EVERY 6 HRS PRN PAIN MDD4 NOT-TAKING HYDROCODONE-ACETAMINOPHEN 7.5-325 MG TABLET 1 TAB DIRECTED ORALLY 1TAB 4XD X9D,1TAB 3XD X7D,1TAB 2XD X7D,1 TAB DAILY X7D THEN STOP NOT-TAKING METHOTREXATE 2.5 MG/ML SOLUTION 1 10CC INJECTION ORALLY WEEKLY NOT-TAKING FOLIC ACID 1 MG TABLET 1 TABLET ORALLY ONCE A DAY NOT-TAKING NORCO 7.5-325 MG TABLET 1 TAB DIRECTED ORALLY 1 TAB 4XD X 9 DAYS,1 TAB 3XD X7D,1 TAB 2XD X7D THEN 1QD X7D THEN DISCONTINUE MDD4 MEDICATION LIST REVIEWED AND RECONCILED WITH THE PATIENT PAST MEDICAL HISTORY ANXIETY GERD BINH - USES CPAP SISTER C RECESSIVE TRAIT OF MPS G1 GENETIC LIPID STORAGE DISORDER SYNCOPE-WEARS STOCKINGS PTSD-MARLYN @ [facility] [place]; FEET-DR. ROSAS VISUAL SNOW SYNDROME SJOGREN'S SYNDROME C NEUROPATHY DEGENERATIVE DISC DISEASE LUMBAR SPINE C NEUROPATHY MACULAR DEGENERATION CROHN'S BY [facility] GOING BLIND ALLERGIES N.K.D.A. SOCIAL HISTORY GENERAL: TOBACCO USE ARE YOU A:CURRENT SMOKER STARTED SMOKING IN TEENAGE YEARS AND QUIT 2018. SMOKED 5 CIGARETTES PER DAY ARE YOU INTERESTED IN QUITTING?THINKING ABOUT QUITTING PREVIOUS QUIT ATTEMPTS?YES, WITHIN THE LAST 6 MONTHS. COUNSELED THE PATIENT ON SMOKING CESSATION, EDUCATION UEFBVNEU86/05/2021 HOW MANY CIGARETTES A DAY DO YOU SMOKE?5 OR LESS 2-3 DAY SMOKING CESSATION INFORMATION GIVEN12/18/2018 LATEX QUESTIONNAIRE LATEX ALLERGY : HAVE YOU EVER DEVELOPED ANY TYPE OF REACTION AFTER HANDLING LATEX PRODUCTS SUCH RUBBER GLOVES, CONDOMS, DIAPHRAGMS, BALLOONS, SOCKS, OR UNDERWEAR?NO LATEX ALLERGY : HAVE YOU EVER DEVELOPED ANY TYPE OF REACTION DURING OR AFTER DENTAL APPOINTMENT, VAGINAL/RECTAL EXAMINATION, SURGICAL PROCEDURE, OR ANY OTHER EXPOSURE?NO LATEX RISK : HAVE YOU EVER HAD ANY DIFFICULTY BREATHING OR HIVES AFTER EATING OR HANDLING ANY FRUITS, OR VEGETABLES; SUCH KIWI, BANANAS, STONE FRUITS, OR CHESTNUTSNO LATEX RISK : DO YOU HAVE A PREVIOUS PERSONAL HISTORY OF MORE THAN NINE SURGERIES, SPINA BIFIDA, OR REPEATED CATHERIZATIONS? NO LATEX RISK : ARE YOU FREQUENTLY EXPOSED TO LATEX PRODUCTS IN YOUR OCCUPATION?NO DATE ASKED : 07/09/2020 ALCOHOL USE: NO. ALCOHOL SCREENING DID YOU HAVE A DRINK CONTAINING ALCOHOL IN THE PAST YEAR?NO POINTS0 INTERPRETATIONNEGATIVE RECREATIONAL DRUG USE DRUG USE?NO PATIENT DENIES ABUSE OR MISSUSED OF ANY MEDICATION DENIES 09/09/19 CAFFEINE CAFFEINE USE?YES ENERGY DRINKS = 2 PER DAY TEA = A COUPLE GLASSES PER DAY COFFEE = 1 CUP PER DAY SEXUAL HX HAD SEX IN THE LAST 12 MONTHS (VAGINAL, ORAL, OR ANAL)?YES WITHWOMEN ONLY USE PROTECTION?NO HAVE YOU EVER HAD AN STD?NO HIV / HEP-C SCREENING HIV TEST OFFERED TO PATIENT:YES DATE OFFERED:07/18/2017 TEST ACCEPTED:NO HEP-C TEST OFFERED TO PATIENT:YES DATE OFFERED:07/18/2017 REASON:PATIENT DECLINED TEST ACCEPTED:NO REASON:PATIENT DECLINED BROCHURE PROVIDED TO PATIENTNO TAOISM [id number] [employer] NO PENTECOSTAL BELIEFS THAT WOULD IMPACT HEALTH CARE. LANGUAGE LANGUAGES SPOKEN:ICELANDIC EDUCATION LEVEL OF EDUCATION:NOT FINISHED COLLEGE LEARNING BARRIERS / SPECIAL NEEDS CHANGE FROM LAST VISIT?YES MRI IMAGING BARRIERS TO LEARNING?NO HEARING IMPAIRED?YES TINNITUS BILATERAL VISION IMPAIRED?YES VISUAL SNOW SYNDROME :CORRECTIVE LENSES COGNITIVELY IMPAIRED?NO READINESS TO LEARN?YES LEARNING PREFERENCES?NO LEARNING CAPABILITIES PRESENT?YES EMOTIONAL BARRIERS?NO SPECIAL DEVICES?YES :CANE RETAIL SALES CONSULTANT NEEDED?NO DOMESTIC VIOLENCE DO YOU FEEL SAFE IN YOUR ENVIRONMENT?YES OCCUPATION: [employer] C[employer]. DIET: REGULAR. EXERCISE: NONE "NOT ANYMORE". MARITAL STATUS: . OTHERS AT HOME: CHILDREN. PATIENT DESCRIBES PAIN :ACHING, HAVE IT ALL THE TIME, THROBBING, SORE FROM 0-10, WHAT LEVEL IS YOUR PAIN TODAY?6 09/09/19 PRECIPITATING FACTORS MOVEMENT, WALKING TOO MUCH ALLEVIATING FACTORS LAYING DOWN - PFS REFERRAL NEEDED?NO CLERGY REFERRAL NEEDED?NO PUBLIC HEALTH REFERRAL NEEDED?NO WAS THE PROVIDER NOTIFIED OF ANY PERTINENT INFO?NO N/A HAS THE PATIENT BEEN EDUCATED REGARDING HIS/HER PLAN OF CARE?YES HAS THE PATIENT BEEN EDUCATED REGARDING PAIN, THE RISK FOR PAIN, THE IMPORTANCE OF EFFECTIVE PAIN MANAGEMENT, AND THE PAIN ASSESSMENT PROCESS?YES HOUSING: RENTS APARTMENT. ADVANCE DIRECTIVE ADVANCE DIRECTIVE DISCUSSED WITH PATIENT:YES PATIENT GIVEN HCP INFORMATION AT THIS TIME, DECLINED ASSISTANCE IN FILLING THE FORM AT THIS TIME. 10/11/17 1000 REVIEWED WITH PT AD01/15/18 1120 REVIEWED WITH PT BVREVIEWED WITH PATIENT 06/04/18 1406 JSREVIEWED WITH PATIENT 10/29/18 1448 JSREVIEWED WITH PATIENT 12/18/18 1433 NLJREVIEWED WITH PATIENT 06/04/19 0911 BV. REVIEW OF SYSTEMS CONSTITUTIONAL: ANY RECENT FEVER NO . CHILLS NO . WEIGHT CHANGE OF UNKNOWN REASONS NO . GASTROENTEROLOGY: NEW UNEXPLAINABLE CHANGES IN BOWEL CONTROL NO . CONSTIPATION NO . GENITOURINARY: ANY NEW CHANGE IN BLADDER CONTROL? NO . NEUROLOGY: NEW ONSET DIZZINESS OR NEUROLOGICAL CHANGES NOT MENTIONED NO . NEW NUMBNESS OR PAIN PATTERNS NOT MENTIONED AND PERTINENT TO TODAY'S VISIT NO . CARDIOLOGY: NEW CHEST PRESSURE NO . PATIENT DENIES NO . RESPIRATORY: UNEXPLAINABLE COUGH NO . NEW SHORTNESS OF BREATH NO . VITAL SIGNS WT 290.2 LBS, HT 70 IN, BMI 41.63 INDEX, BP 143/96 MM HG, HR 128 /MIN, RR 18 /MIN, TEMP 96.0 F, OXYGEN SAT % 98%, NA INITIALS AW 1449LET THE MA KNOW ABOUT PT HR. EXAMINATION GENERAL EXAMINATION: GENERALNO ACUTE DISTRESS, WELL NOURISHED AND HYDRATED. PSYCHAPPROPRIATE MOOD AND AFFECT . FACE:UNREMARKABLE. LUNGS:CLEAR TO AUSCULTATION BILATERALLY, NO WHEEZES, RHONCHI, RALES. HEART:NO MURMURS, REGULAR RATE AND RHYTHM. ASSESSMENTS CHRONIC PRESCRIPTION OPIATE USE - Z79.891 (PRIMARY) INFLAMMATORY ARTHROPATHY - M19.90 TREATMENT CHRONIC PRESCRIPTION OPIATE USE REFILL HYDROCODONE-ACETAMINOPHEN TABLET, 7.5-325 MG, 1 TABLET NEEDED, ORALLY, EVERY 6 HRS PRN MDD4, 30 DAYS, 120, REFILLS 0 REFILL MOVANTIK TABLET, 12.5 MG, 1 TABLET IN THE MORNING, ORALLY, ONCE A DAY, 30 DAY(S), 30, REFILLS 3 REFILL MS CONTIN TABLET EXTENDED RELEASE, 30 MG, 1 TAB DIRECTED, ORALLY, BID MDD2, 30 DAYS, 60, REFILLS 0 LAB: URINE TEST [facility] JONATAN HEARN 07/09/2020 3:07:41 PM > LAST DOSE: HYDROCODONE 07/09/20; MORPHINE 07/09/20 NOTES: PATIENT STATES THAT HE WAS USING MEDICAL MARIJUANA A FEW MONTHS AGO. I DID TELL HIM THAT WE CANNOT HAVE HIM USING MARIJUANA IF HE IS TAKING NARCOTIC PAIN MEDICATIONS. HE IS AWARE AND WILL NOT BE USING MEDICAL MARIJUANA ANYMORE. WE WILL BE DOING URINE TOXICOLOGY'S AND HE IS AWARE THAT IN THE FUTURE AFTER THIS TOXICOLOGY IF THERE IS MARIJUANA IN TOXICOLOGY WE WOULD HAVE TO DISCONTINUE NARCOTIC PAIN MEDICATIONS. HE VOICES UNDERSTANDING. HE ALSO IS AWARE THAT IF HE MISSES OR CANCELS APPOINTMENTS WE WOULD HAVE TO DISCHARGE HIM FROM THE PRACTICE. , ISTOP REGISTRY REVIEWED AND DEMONSTRATES COMPLLIANCE. BRINGS IN MEDICATIONS WHICH IS APPROPRIATE FOR WHAT WAS DISPENSED. RECENT URINE TOXICOLOGY REVIEWED. NO UNAUTHORIZED MEDICATIONS. NO ILLICIT SUBSTANCES AND PRESCRIBED MEDICATIONS WERE PRESENT. DISPOSITION & COMMUNICATION FOLLOW UP 2 MONTHS (REASON: REVIEW UTOX/MED MGMNT) ELECTRONICALLY SIGNED BY NICKY MORENO ON 07/16/2020 AT 08:40 AM EST DISCLAIMER : THIS IS A VISIT SUMMARY EXTRACTED FROM THE [employer] CHART. IT IS NOT A COPY OF THE [employer] PROGRESS NOTE. ROLDAND
== END ==
LOC: M PAIN 14:45
PROVIDERS: ATTEND Nurse Practitioner Family
DX: M19.90 Unspecified osteoarthritis, unspecified site (principal); G89.29 Other chronic pain; K21.9 Gastro-esophageal reflux disease without esophagitis; G47.33 Obstructive sleep apnea (adult) (pediatric); F17.210 Nicotine dependence, cigarettes, uncomplicated; Z86.59 Personal history of other mental and behavioral disorders; E66.01 Morbid (severe) obesity due to excess calories; Z68.41 Body mass index [BMI] 40.0-44.9, adult; Z79.891 Long term (current) use of opiate analgesic; Z79.899 Other long term (current) drug therapy

== ENCOUNTER → 2020-09-17 | Outpatient (CLI) | payer MEDICARE, MEDICAID ==
[~2020-09-17] MED LIST changes: +GABA-283 PO; -GABA-845 PO
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
== END ==
LOC: M PAIN 14:15
PROVIDERS: ATTEND Nurse Practitioner Family
DX: M46.1 Sacroiliitis, not elsewhere classified (principal); M19.90 Unspecified osteoarthritis, unspecified site; G62.9 Polyneuropathy, unspecified; G89.29 Other chronic pain; K21.9 Gastro-esophageal reflux disease without esophagitis; G47.33 Obstructive sleep apnea (adult) (pediatric); F17.210 Nicotine dependence, cigarettes, uncomplicated; Z86.59 Personal history of other mental and behavioral disorders; E66.01 Morbid (severe) obesity due to excess calories; Z68.41 Body mass index [BMI] 40.0-44.9, adult; Z79.891 Long term (current) use of opiate analgesic; Z79.899 Other long term (current) drug therapy

== ENCOUNTER → 2020-09-29 | Outpatient (CLI) | payer MEDICARE, MEDICAID | LOC: M PAIN 13:15 | PROVIDERS: ATTEND Nurse Practitioner Family | DX: Z53.9 Procedure and treatment not carried out, unspecified reason (principal) ==

== ENCOUNTER → 2020-10-05 | Outpatient (CLI) | payer MEDICARE, MEDICAID ==
--- NOTE | 2020-10-05 23:34 | ECWPNPC ---
PATIENT NAME: DEIRDRE DUBOSE : 1980 GENDER: MALE VISIT DATE: 10/05/2020 DISCHARGE DATE: 10/05/20 1053 VISIT LOCKED DATE TIME: PHYSICIAN: FRANSICO BLACK PHYSICIAN PAGER NO: ACTIVE RESOURCE: FRANSICO BLACK REASON FOR APPOINTMENT 1. MED MGMNT/UTOX/PILL COUNT ID HISTORY OF PRESENT ILLNESS GENERAL: HERE TODAY FOR PILL COUNT AND IDENTIFICATION. HE FORGOT TO BRING IN HIS MEDICATIONS AT HIS LAST VISIT. ALSO HERE TODAY FOR URINE TOXICOLOGY. BRINGS IN HIS MEDICATIONS. IT DOES APPEAR THAT HE MIGHT BE TAKING A LITTLE BIT MORE OF THE HYDROCODONE THAN WHAT I HAVE PRESCRIBED. FORMAL PILL COUNT AND IDENTIFICATION WILL BE DONE TODAY. DENIES HOMICIDAL OR SUICIDAL IDEATIONS. HE HAS BEEN UNDER A LOT OF STRESS OVER THE PAST 6-8 MONTHS. FOLLOWS WEAKLY WITH PSYCHIATRY. INFORMED HIM THAT I WOULD NEED TO SEE HIM AT OUR CLINIC EVERY 2 WEEKS FOR THE NEXT FEW MONTHS. ENIES SUICIDAL OR HOMICIDAL IDEATIONS. -. FALL RISK SCREENING: SCREENING : NO FALLS REPORTED IN THE LAST YEAR. PAIN SCREENING: PATIENT HAS A COMPLAINT OF ACUTE OR CHRONIC PAIN :YES LOCATION OF PAIN:OTHER: JOINT INTENSITY OF PAIN (SCALE OF 1 TO 10):5 WHAT DOES YOUR PAIN FEEL LIKE:ACHING, SHARP, TENDER, THROBBING, SORE DURATION:CONTINOUS, CONSTANT, ALL DAY PAIN IS INCREASED BY:ACTIVITIES, PROLONGED STANDING, OTHERS SITTING FOR A LONG PERIOD OF TIME PAIN IS DECREASED BY:USE OF PAIN MEDICATIONS NURSING NOTE: -. PAIN CENTER INTAKE QUESTIONS: DO YOU HAVE A HISTORY OF MRSA? :NO DO YOU TAKE A BLOOD THINNERS? :NO DO YOU HAVE ANY BLEEDING DISORDERS? :NO ANY NEW NUMBNESS OR WEAKNESS IN YOUR LEGS OR ARMS? :NO ANY PACEMAKER,DEFIBRILLATOR, OR DORSAL COLUMN STIMULATOR? :NO DO YOU HAVE ANY RASHES OR OPEN SORES? :NO ARE YOU ALLERGIC TO IV DYE? :NO ARE YOU DIABETIC? :NO ANY NEW PROBLEMS WITH YOUR MEDICATIONS? :NO HAVE YOU RECEIVED A VACCINE IN THE PAST 30 DAYS? :YES IF SO WHAT VACCINE AND WHEN? 07/05/2020 COVID 1ST DO YOU PLAN TO RECEIVE A VACCINE IN THE NEXT 21 DAYS? :YES IF SO WHAT VACCINE AND WHEN? COVID 2ND 08/02/2020 DO YOU NEED ANY PRESCRIPTION? :YES ALL PAIN MEDS DO YOU TAKE ANY IMMUNOSUPPRESSIVE MEDICATIONS? :YES HUMIRA IS THERE A CHANCE YOU COULD BE ? :NO ARE YOU BREAST FEEDING? :NO CURRENT MEDICATIONS TAKING GABAPENTIN 600 MG TABLET 1 TABLET ORALLY Q8H TID TAKING OMEPRAZOLE 40 MG CAPSULE DELAYED RELEASE 1 CAPSULE ORALLY BID TAKING TRIAMCINOLONE ACETONIDE 0.1 % CREAM 1 APPLICATION EXTERNALLY TWICE A DAY TAKING DULOXETINE HCL 60 MG CAPSULE DELAYED RELEASE PARTICLES 1 CAPSULE ORALLY ONCE A DAY TAKING AMITRIPTYLINE HCL 50 MG TABLET 1 TABLET ORALLY ONCE A DAY TAKING LORAZEPAM 1MG ORAL DAILY TAKING BUPROPION HCL ER (XL) 300 MG TABLET EXTENDED RELEASE 24 HOUR 1 TABLET IN THE MORNING ORALLY ONCE A DAY TAKING DULOXETINE HCL 30 MG CAPSULE DELAYED RELEASE PARTICLES 1 CAPSULE C 60MG ORALLY ONCE A DAY TAKING COLACE 100 MG CAPSULE 1 CAPSULE NEEDED ORALLY BID TAKING ZOFRAN ODT 4 MG TABLET DISPERSIBLE 1 TABLET ON THE TONGUE AND ALLOW TO DISSOLVE ORALLY EVERY 8 HRS TAKING SIMETHICONE 80 MG TABLET CHEWABLE 1 TABLET AFTER MEALS AND AT BEDTIME NEEDED ORALLY FOUR TIMES A DAY TAKING TRIAMCINOLONE ACETONIDE 0.1 % PASTE 1 APPLICATION TO CANKER SORES MOUTH/THROAT BEFORE BEDTIME NEEDED TAKING HUMIRA PEN 40 MG/0.4ML PEN-INJECTOR KIT DIRECTED SUBCUTANEOUS EVERY 2 WEEKS TAKING OMEPRAZOLE 40 MG CAPSULE DELAYED RELEASE 1 CAPSULE ORALLY BID TAKING DICLOFENAC SODIUM 50 MG TABLET DELAYED RELEASE 1 TABLET WITH FOOD OR MILK ORALLY THREE TIMES A DAY TAKING BACLOFEN 10 MG TABLET 1 TABLET WITH FOOD OR MILK ORALLY Q6H QID TAKING VIAGRA 25 MG TABLET 1 TABLET NEEDED ORALLY ONCE A DAY TAKING BISACODYL 5 MG TABLET DELAYED RELEASE 1 TABLET NEEDED ORALLY BEFORE BEDTIME TAKING MS CONTIN 15 MG TABLET EXTENDED RELEASE 1 TABLET ORALLY 1 TAB IN AM AND 2 TAB AT HS MDD3 TAKING HYDROCODONE-ACETAMINOPHEN 10-325 MG TABLET 1 TABLET NEEDED ORALLY EVERY 6 HRS PRN MDD4 TAKING TIZANIDINE HCL 4 MG TABLET 1 TABLET NEEDED ORALLY THREE TIMES A DAY NOT-TAKING FOLIC ACID 1 MG TABLET 1 TABLET ORALLY ONCE A DAY NOT-TAKING MOVANTIK 12.5 MG TABLET 1 TABLET IN THE MORNING ORALLY ONCE A DAY NOT-TAKING COLACE 100 MG CAPSULE 1 CAPSULE NEEDED ORALLY ONCE A DAY NOT-TAKING NORCO 7.5-325 MG TABLET 1 TABLET NEEDED ORALLY EVERY 6 HRS PRN MDD4 NOT-TAKING METHOTREXATE 2.5 MG/ML SOLUTION 1 10CC INJECTION ORALLY WEEKLY MEDICATION LIST REVIEWED AND RECONCILED WITH THE PATIENT PAST MEDICAL HISTORY ANXIETY GERD BINH - USES CPAP SYNCOPE-WEARS STOCKINGS PTSD-MARLYN @ [facility] [place]; FEET-DR. ROSAS VISUAL SNOW SYNDROME SJOGREN'S SYNDROME WITH NEUROPATHY MACULAR DEGENERATION LUMP IN RT. TESTICLE ALLERGIES N.K.D.A. SOCIAL HISTORY GENERAL: TOBACCO USE ARE YOU A:CURRENT SMOKER STARTED SMOKING IN TEENAGE YEARS AND QUIT 2018. SMOKED 5 CIGARETTES PER DAY ARE YOU INTERESTED IN QUITTING?THINKING ABOUT QUITTING PREVIOUS QUIT ATTEMPTS?YES, WITHIN THE LAST 6 MONTHS. COUNSELED THE PATIENT ON SMOKING CESSATION, EDUCATION YOAVTSNE01/01/2021 HOW MANY CIGARETTES A DAY DO YOU SMOKE?5 OR LESS 2-3 DAY SMOKING CESSATION INFORMATION GIVEN12/18/2018 LATEX QUESTIONNAIRE LATEX ALLERGY : HAVE YOU EVER DEVELOPED ANY TYPE OF REACTION AFTER HANDLING LATEX PRODUCTS SUCH RUBBER GLOVES, CONDOMS, DIAPHRAGMS, BALLOONS, SOCKS, OR UNDERWEAR?NO LATEX ALLERGY : HAVE YOU EVER DEVELOPED ANY TYPE OF REACTION DURING OR AFTER DENTAL APPOINTMENT, VAGINAL/RECTAL EXAMINATION, SURGICAL PROCEDURE, OR ANY OTHER EXPOSURE?NO LATEX RISK : HAVE YOU EVER HAD ANY DIFFICULTY BREATHING OR HIVES AFTER EATING OR HANDLING ANY FRUITS, OR VEGETABLES; SUCH KIWI, BANANAS, STONE FRUITS, OR CHESTNUTSNO LATEX RISK : DO YOU HAVE A PREVIOUS PERSONAL HISTORY OF MORE THAN NINE SURGERIES, SPINA BIFIDA, OR REPEATED CATHERIZATIONS? NO LATEX RISK : ARE YOU FREQUENTLY EXPOSED TO LATEX PRODUCTS IN YOUR OCCUPATION?NO DATE ASKED : 10/05/2020 ALCOHOL USE: NO. ALCOHOL SCREENING DID YOU HAVE A DRINK CONTAINING ALCOHOL IN THE PAST YEAR?NO POINTS0 INTERPRETATIONNEGATIVE RECREATIONAL DRUG USE DRUG USE?NO PATIENT DENIES ABUSE OR MISSUSED OF ANY MEDICATION DENIES 09/09/19 CAFFEINE CAFFEINE USE?YES ENERGY DRINKS = 2 PER DAY TEA = A COUPLE GLASSES PER DAY COFFEE = 1 CUP PER DAY SEXUAL HX HAD SEX IN THE LAST 12 MONTHS (VAGINAL, ORAL, OR ANAL)?YES WITHWOMEN ONLY USE PROTECTION?NO HAVE YOU EVER HAD AN STD?NO HIV / HEP-C SCREENING HIV TEST OFFERED TO PATIENT:YES DATE OFFERED:07/18/2017 TEST ACCEPTED:NO HEP-C TEST OFFERED TO PATIENT:YES DATE OFFERED:07/18/2017 REASON:PATIENT DECLINED TEST ACCEPTED:NO REASON:PATIENT DECLINED BROCHURE PROVIDED TO PATIENTNO SPIRITISM [id number] EPISCOPAL NO MORMON BELIEFS THAT WOULD IMPACT HEALTH CARE. LANGUAGE LANGUAGES SPOKEN:LITHUANIAN EDUCATION LEVEL OF EDUCATION:NOT FINISHED COLLEGE LEARNING BARRIERS / SPECIAL NEEDS CHANGE FROM LAST VISIT?YES MRI IMAGING BARRIERS TO LEARNING?NO HEARING IMPAIRED?YES TINNITUS BILATERAL VISION IMPAIRED?YES VISUAL SNOW SYNDROME :CORRECTIVE LENSES COGNITIVELY IMPAIRED?NO READINESS TO LEARN?YES LEARNING PREFERENCES?NO LEARNING CAPABILITIES PRESENT?YES EMOTIONAL BARRIERS?NO SPECIAL DEVICES?YES :CANE NEEDED PROFESSOR OF INDUSTRIAL TECHNOLOGY NEEDED?NO DOMESTIC VIOLENCE DO YOU FEEL SAFE IN YOUR ENVIRONMENT?YES OCCUPATION: [employer]. DIET: REGULAR. EXERCISE: NONE "NOT ANYMORE". MARITAL STATUS: . OTHERS AT HOME: CHILDREN. PATIENT DESCRIBES PAIN :ACHING, HAVE IT ALL THE TIME, THROBBING, SORE FROM 0-10, WHAT LEVEL IS YOUR PAIN TODAY?6 09/09/19 PRECIPITATING FACTORS MOVEMENT, WALKING TOO MUCH ALLEVIATING FACTORS LAYING DOWN - PFS REFERRAL NEEDED?NO CLERGY REFERRAL NEEDED?NO PUBLIC HEALTH REFERRAL NEEDED?NO WAS THE PROVIDER NOTIFIED OF ANY PERTINENT INFO?NO N/A HAS THE PATIENT BEEN EDUCATED REGARDING HIS/HER PLAN OF CARE?YES HAS THE PATIENT BEEN EDUCATED REGARDING PAIN, THE RISK FOR PAIN, THE IMPORTANCE OF EFFECTIVE PAIN MANAGEMENT, AND THE PAIN ASSESSMENT PROCESS?YES HOUSING: RENTS APARTMENT. ADVANCE DIRECTIVE ADVANCE DIRECTIVE DISCUSSED WITH PATIENT:YES PATIENT GIVEN HCP INFORMATION AT THIS TIME, DECLINED ASSISTANCE IN FILLING THE FORM AT THIS TIME. 10/11/17 1000 REVIEWED WITH PT AD01/15/18 1120 REVIEWED WITH PT BVREVIEWED WITH PATIENT 06/04/18 1406 JSREVIEWED WITH PATIENT 10/29/18 1448 JSREVIEWED WITH PATIENT 12/18/18 1433 NLJREVIEWED WITH PATIENT 06/04/19 0911 BV. REVIEW OF SYSTEMS CONSTITUTIONAL: ANY RECENT FEVER NO . CHILLS NO . WEIGHT CHANGE OF UNKNOWN REASONS NO . GASTROENTEROLOGY: NEW UNEXPLAINABLE CHANGES IN BOWEL CONTROL NO . CONSTIPATION NO . GENITOURINARY: ANY NEW CHANGE IN BLADDER CONTROL? NO . NEUROLOGY: NEW ONSET DIZZINESS OR NEUROLOGICAL CHANGES NOT MENTIONED NO . NEW NUMBNESS OR PAIN PATTERNS NOT MENTIONED AND PERTINENT TO TODAY'S VISIT NO . CARDIOLOGY: NEW CHEST PRESSURE NO . PATIENT DENIES NO . RESPIRATORY: UNEXPLAINABLE COUGH NO . NEW SHORTNESS OF BREATH NO . VITAL SIGNS WT 305.8 LBS, HT 70 IN, BMI 43.87 INDEX, BP 130/87 MM HG, HR 103 /MIN, RR 20 /MIN, TEMP 98.5 F, OXYGEN SAT % 97%, SAFE IN ENV? (Y/N) YES, NA INITIALS SC 10:13T.DHIRAJ MARIA. EXAMINATION GENERAL EXAMINATION: GENERALAWAKE,ALERT ,PLEASANT . PSYCHAFFECT NORMAL . LUNGS:LUNG RENTERIA ARE CLEAR TO AUSCULTATION BILATERALLY. GOOD MOVEMENT OF AIR . HEART:S1, S2 IN A REGULAR RATE AND RHYTHM. NO SIGNIFICANT MURMURS, RUBS OR GALLOPS NOTED . ASSESSMENTS INFLAMMATORY ARTHROPATHY - M19.90 (PRIMARY) NEUROPATHY - G62.9 CHRONIC PRESCRIPTION OPIATE USE - Z79.891 TREATMENT INFLAMMATORY ARTHROPATHY CONTINUE MS CONTIN TABLET EXTENDED RELEASE, 15 MG, 1 TABLET, ORALLY, 1 TAB IN AM AND 2 TAB AT HS MDD3 CONTINUE HYDROCODONE-ACETAMINOPHEN TABLET, 10-325 MG, 1 TABLET NEEDED, ORALLY, EVERY 6 HRS PRN MDD4 CONTINUE TIZANIDINE HCL TABLET, 4 MG, 1 TABLET NEEDED, ORALLY, THREE TIMES A DAY LAB: URINE TEST GROUP JONATAN HEARN 10/05/2020 10:48:59 AM > LAST DOSE: MS CONTIN 10/05/2020 @ 730AM, NORCO 10/04/2020 @11PM PATIENT MEDICATION INVENTORY #1PRESCRIPTON #[id number] OF RX ON BOTTLE09/17/20DRUG AND STRENGTHHYDROCODONE/ACETIMINOPHEN 10/325MGFORMULATIONTABLETVERIFIED DRUG [id number]JONATAN HARTMAN 10/05/2020 10:49:11 AM > PATIENT REPORTS HAS MEDICATION "HALVES" IN PILL ORGANIZER AT HOME, PATIENT ASKED TO BRING ALL PRESCRIBED MEDICATIONS WITH HIM TO EACH ENCOUNTER. JONATAN HEARN 10/05/2020 10:49:27 AM > PILL COUNT CONDUCTED WITH Rohit MCKENZIE RN BSN PATIENT MEDICATION INVENTORY #2PRESCRIPTION #[id number] OF RX ON KZNAQQ43/14/21DRUG AND STRENGTHMORPHINE ER 15MGFORMULATIONTABLETSVERIFIED DRUG [id number],TRUDYANN 10/05/2020 10:50:07 AM > PILL COUNT CONDUCTED WITH Rohit MCKENZIE RN BSN NOTES: ISTOP REGISTRY REVIEWED AND DEMONSTRATES COMPLLIANCE. RECENT URINE TOXICOLOGY REVIEWED. HYDROCODONE APPEARS TO BE SHORT 5 DAYS.HE STATES HE HAS 1/2 TABLETS AT HOME.HE IS ADVISED TO BRING HIS MEDICATION THAT HE SAYS HE LEFT HOME IN PILL BOX TO EVERY VISIT PER CLINIC POLICY. , RISKS OF NARCOTIC/OPIOD MEDICATIONS INCLUDES BUT IS NOT LIMITED TO RISK OF DEPENDANCE/DEVELOPMENT OF ADDICTION, MOOD DISTURBANCE AND DEPRESSION, OSTEOPOROSIS, HORMONAL AND LABIDAL CHANGES, RESPIRATORY DEPRESSION AND . PATIENT IS ADVISED NOT TO DRIVE OR DRINK ALCOHOL WHILE ON THESE MEDICATIONS. CHRONIC PRESCRIPTION OPIATE USE PATIENT MEDICATION INVENTORY #1PRESCRIPTON #[id number] OF RX ON BOTTLE09/17/20DRUG AND STRENGTHHYDROCODONE/ACETIMINOPHEN 10/325MGFORMULATIONTABLETVERIFIED DRUG YAZICUQUXSATMKAPIHM88.5THJONATAN HARTMAN 10/05/2020 10:49:11 AM > PATIENT REPORTS HAS MEDICATION "HALVES" IN PILL ORGANIZER AT HOME, PATIENT ASKED TO BRING ALL PRESCRIBED MEDICATIONS WITH HIM TO EACH ENCOUNTER. JONATAN HEARN 10/05/2020 10:49:27 AM > PILL COUNT CONDUCTED WITH Rohit MCKENZIE RN BSN PROCEDURE CODES FA211 ESTABILISHED PATIENT [facility] FACILITY CHARGE DISPOSITION & COMMUNICATION FOLLOW UP 10 DAYS (REASON: MED MGMNT/REVIEW UTOX) ELECTRONICALLY SIGNED BY NICKY MORENO ON 10/05/2020 AT 08:58 PM EDT DISCLAIMER : THIS IS A VISIT SUMMARY EXTRACTED FROM THE [employer] CHART. IT IS NOT A COPY OF THE [employer] PROGRESS NOTE. JORDYN
== END ==
LOC: M PAIN 10:00
PROVIDERS: ATTEND Nurse Practitioner Family
DX: M19.90 Unspecified osteoarthritis, unspecified site (principal); G62.9 Polyneuropathy, unspecified; K21.9 Gastro-esophageal reflux disease without esophagitis; G47.33 Obstructive sleep apnea (adult) (pediatric); F17.210 Nicotine dependence, cigarettes, uncomplicated; Z86.59 Personal history of other mental and behavioral disorders; E66.01 Morbid (severe) obesity due to excess calories; Z68.41 Body mass index [BMI] 40.0-44.9, adult; Z79.891 Long term (current) use of opiate analgesic; Z79.899 Other long term (current) drug therapy

== ENCOUNTER 2022-05-13 12:49 | Emergency (ER) | payer MEDICARE, OTHER ==
[~2022-05-13] VITALS: Ht 177.8 cm; Wt 144.0 kg
[~2022-05-13 12:49] MED LIST changes: +BUPR10DI3 TOP; +BUPR150T12 PO; +CVS10CAP7 PO; +DULO30CA9 PO; +GABA-282 PO; -LORA1TAB4; +LORA1TAB4 PO; +NICO21PAT TD; +NICO2GUM41 PO; +OMEP40CA4 PO; -OMEP40CA97 PO; +REST0.05 OU; +TIZA4CAP PO
[2022-05-13] MEDS ORDERED: HUMI40IN2 (13:17)
[2022-05-13] MEDS ORDERED: VRAY4.5C (13:17)
[2022-05-13] MEDS ORDERED: TRAZ-257 (13:17)
[2022-05-13] MEDS ORDERED: AMOX875T (13:24)
[2022-05-13] MEDS ORDERED: CLINDAMYCIN 900 MG in IV 1 EA IV ONE (13:25)
[2022-05-13] MEDS ORDERED: ISOVUE-370 76% 100ML VIAL As Ordered ONE (13:46)
[2022-05-13] MEDS ORDERED: KETOROLAC 30 MG/ML 1ML VIAL IV ONE (14:25)
[2022-05-13] MEDS ORDERED: CLIN150C17 PO (14:26)
[2022-05-13] MEDS ORDERED: AMOX875T2 PO (14:57)
[2022-05-13] MEDS ORDERED: AMPICILLIN SOD/SULBACTAM SOD 3 GM in D5W MINI-BAG PLUS 100 ML IV ONE (15:00)
[2022-05-13 15:54] VITALS: BP 131/86
== END 2022-05-13 16:00 | disposition home or self-care (01) ==
LOC: M ED 12:49
DX: K04.7 Periapical abscess without sinus (principal); L03.211 Cellulitis of face; K08.89 Other specified disorders of teeth and supporting structures; F32.A Depression, unspecified; G47.33 Obstructive sleep apnea (adult) (pediatric); F17.200 Nicotine dependence, unspecified, uncomplicated; M06.9 Rheumatoid arthritis, unspecified; Z79.899 Other long term (current) drug therapy; Z79.620 Long term (current) use of immunosuppressive biologic; Z79.810 Long term (current) use of selective estrogen receptor modulators (SERMs); Z79.891 Long term (current) use of opiate analgesic
CPT/HCPCS: 70487; 80047; 96365; 96366; 96375; 99283; Q9967

== ENCOUNTER → 2022-10-17 | Outpatient (CLI) | payer MEDICARE, OTHER ==
[~2022-10-17] MED LIST changes: +AMOX875T; +AMOX875T2 PO; +CLIN150C17 PO; +HUMI40IN2; +LORA1TAB23 PO; -LORA1TAB4 PO; +METHACHOLINE KIT INH ONE; +TRAZ-257; +VRAY4.5C
== END ==
LOC: M CARPUL 07:19
PROVIDERS: ATTEND Nurse Practitioner Adult Health
DX: R06.02 Shortness of breath (principal)
CPT/HCPCS: 94070; 95070; J7674

== ENCOUNTER → 2022-10-24 | Outpatient (CLI) | payer MEDICARE, OTHER ==
[~2022-10-24] MED LIST changes: -METHACHOLINE KIT INH ONE
== END ==
LOC: M WUC 10:59
PROVIDERS: ATTEND Nurse Practitioner Adult Health
DX: R06.02 Shortness of breath (principal)

== ENCOUNTER → 2022-11-03 | Outpatient (REF) | payer MEDICARE, OTHER, MEDICAID ==
[2022-11-03 13:31] LABS: FREE T4 1.14 NG/DL (0.89-1.76); THYROID STIMULATING HORMONE 0.547 uIU/ML (0.55-4.78)
[2022-11-03 13:32] LABS: ALBUMIN 4.1 G/DL (3.2-5.2); ALKALINE PHOSPHATASE 144 U/L (46-116); ALT/SGPT 19 U/L (7.0-40); AST/SGOT 25 U/L (<34); BILIRUBIN,TOTAL 0.9 MG/DL (0.3-1.2); BLOOD UREA NITROGEN 11 MG/DL (9-23); CALCIUM LEVEL 8.8 MG/DL (8.5-10.1); CARBON DIOXIDE LEVEL 31 MMOL/L (20-31); CHLORIDE LEVEL 98 MMOL/L (98-107); CHOLESTEROL LEVEL 158 MG/DL (<200); CHOLESTEROL RISK RATIO 4.78 (<5); CREATININE FOR GFR 1.01 MG/DL (0.70-1.30); GLOMERULAR FILTRATION RATE > 60.0 (>60); GLUCOSE, FASTING 332 MG/DL (60-100); LDL CHOLESTEROL 70.2 MG/DL (<100); POTASSIUM SERUM 4.2 MMOL/L (3.5-5.1); SODIUM LEVEL 135 MMOL/L (136-145); TESTOSTERONE 312 NG/DL (241-827); TOTAL PROTEIN 7.5 G/DL (5.7-8.2); TRIGLYCERIDES LEVEL 274 MG/DL (<150)
[2022-11-03 13:49] LABS: HEMOGLOBIN A1c 10.2 % (4.0-6.0)
== END ==
LOC: M LAB REF 12:43
PROVIDERS: ATTEND Family Medicine Addiction Medicine
DX: F52.21 Male erectile disorder (principal); R41.840 Attention and concentration deficit; R73.03 Prediabetes

== ENCOUNTER → 2022-12-27 | Outpatient (CLI) | payer MEDICARE, OTHER ==
[~2022-12-27] MED LIST changes: -GABA-283 PO; +GABA-284 PO
== END ==
LOC: M RAD 17:30
PROVIDERS: ATTEND Nurse Practitioner Adult Health
DX: R91.8 Other nonspecific abnormal finding of lung field (principal)

== ENCOUNTER → 2023-03-22 | Outpatient (REF) | payer MEDICARE, OTHER ==
[2023-03-22 18:33] LABS: HEMOGLOBIN A1c > 14.0 % (4.0-6.0)
[2023-03-22 18:38] LABS: ALBUMIN 3.8 G/DL (3.2-5.2); ALKALINE PHOSPHATASE 119 U/L (46-116); ALT/SGPT 45 U/L (7.0-40); AST/SGOT 26 U/L (<34); BILIRUBIN,TOTAL 0.5 MG/DL (0.3-1.2); BLOOD UREA NITROGEN 11 MG/DL (9-23); CALCIUM LEVEL 9.4 MG/DL (8.5-10.1); CARBON DIOXIDE LEVEL 33 MMOL/L (20-31); CHLORIDE LEVEL 95 MMOL/L (98-107); CREATININE FOR GFR 0.83 MG/DL (0.70-1.30); GLOMERULAR FILTRATION RATE > 60.0 (>60); GLUCOSE, FASTING 437 MG/DL (60-100); POTASSIUM SERUM 4.6 MMOL/L (3.5-5.1); SODIUM LEVEL 133 MMOL/L (136-145); TESTOSTERONE 497 NG/DL (241-827); THYROID STIMULATING HORMONE 0.654 uIU/ML (0.55-4.78); TOTAL PROTEIN 7.3 G/DL (5.7-8.2)
== END ==
LOC: M LAB REF 16:39
PROVIDERS: ATTEND Family Medicine Addiction Medicine
DX: R73.9 Hyperglycemia, unspecified (principal); E07.9 Disorder of thyroid, unspecified

== ENCOUNTER → 2023-07-31 | Outpatient (CLI) | payer MEDICARE, OTHER | LOC: M RAD 10:05 | PROVIDERS: ATTEND Nurse Practitioner Adult Health | DX: R91.8 Other nonspecific abnormal finding of lung field (principal) ==

== ENCOUNTER → 2024-01-09 | Outpatient (REF) | payer OTHER ==
[~2024-01-09] MED LIST changes: +ONDA-282 PO; -ONDA4TAB6 PO
[2024-01-09 17:33] LABS: CREATININE, URINE 180.8 MG/DL; MALB URINE SIEMENS < 3.0 MG/L; MAU/CREAT RATIO 1.6 MCG/MG (0.0-30.0)
[2024-01-09 19:07] LABS: ALBUMIN 3.8 G/DL (3.2-5.2); ALKALINE PHOSPHATASE 92 U/L (46-116); ALT/SGPT 31 U/L (7.0-40); AST/SGOT 22 U/L (<34); BILIRUBIN,TOTAL 0.6 MG/DL (0.3-1.2); BLOOD UREA NITROGEN 13 MG/DL (9-23); CALCIUM LEVEL 9.4 MG/DL (8.5-10.1); CARBON DIOXIDE LEVEL 29 MMOL/L (20-31); CHLORIDE LEVEL 102 MMOL/L (98-107); CHOLESTEROL LEVEL 155 MG/DL (<200); CHOLESTEROL RISK RATIO 3.47 (<5); CREATININE FOR GFR 0.86 MG/DL (0.70-1.30); GLOMERULAR FILTRATION RATE > 60.0 (>60); GLUCOSE, FASTING 148 MG/DL (60-100); HDL CHOLESTEROL 44.6 MG/DL (>40); LDL CHOLESTEROL 77.2 MG/DL (<100); NON-HDL-C 110.4 MG/DL; POTASSIUM SERUM 4.1 MMOL/L (3.5-5.1); SODIUM LEVEL 137 MMOL/L (136-145); TOTAL PROTEIN 7.6 G/DL (5.7-8.2); TRIGLYCERIDES LEVEL 166 MG/DL (<150)
[2024-01-09 19:40] LABS: HEMOGLOBIN A1c 7.6 % (4.0-6.0)
== END ==
LOC: M LAB REF 16:30
PROVIDERS: ATTEND Family Medicine Addiction Medicine
DX: E11.9 Type 2 diabetes mellitus without complications (principal)

== ENCOUNTER → 2024-02-01 | Outpatient (CLI) | payer OTHER ==
[2024-02-01 13:07] LABS: CREATININE FOR GFR 0.85 MG/DL (0.70-1.30); GLOMERULAR FILTRATION RATE > 60.0 (>60)
== END ==
LOC: M WUC 09:08
PROVIDERS: ATTEND Physician Assistant Medical
DX: R94.4 Abnormal results of kidney function studies (principal)

== ENCOUNTER → 2024-04-16 | Outpatient (REF) | payer OTHER ==
[~2024-04-16] MED LIST changes: +GABA-1172 PO; -GABA-282 PO
[2024-04-16 13:51] LABS: CREATININE, URINE 120.2 MG/DL
[2024-04-16 13:52] LABS: MALB URINE SIEMENS < 3.0 MG/L
[2024-04-16 14:31] LABS: ALBUMIN 3.5 G/DL (3.2-5.2); ALKALINE PHOSPHATASE 105 U/L (40-129); ALT/SGPT 33 U/L (7.0-40); AST/SGOT 21 U/L (<34); BILIRUBIN,TOTAL 0.5 MG/DL (0.3-1.2); BLOOD UREA NITROGEN 12 MG/DL (9-23); CALCIUM LEVEL 9.6 MG/DL (8.5-10.1); CARBON DIOXIDE LEVEL 33 MMOL/L (20-31); CHLORIDE LEVEL 101 MMOL/L (98-107); CHOLESTEROL LEVEL 145 MG/DL (<200); CREATININE FOR GFR 1.09 MG/DL (0.70-1.30); GLOMERULAR FILTRATION RATE > 60.0 (>60); GLUCOSE, FASTING 260 MG/DL (60-100); HDL CHOLESTEROL 40.2 MG/DL (>40); LDL CHOLESTEROL 63.6 MG/DL (<100); NON-HDL-C 104.8 MG/DL; POTASSIUM SERUM 4.3 MMOL/L (3.5-5.1); SODIUM LEVEL 139 MMOL/L (136-145); TOTAL PROTEIN 7.5 G/DL (5.7-8.2); TRIGLYCERIDES LEVEL 206 MG/DL (<150)
[2024-04-16 15:10] LABS: HEMOGLOBIN A1c 10.8 % (4.0-6.0)
== END ==
LOC: M LAB REF 12:22
PROVIDERS: ATTEND Family Medicine Addiction Medicine
DX: E11.9 Type 2 diabetes mellitus without complications (principal)

== ENCOUNTER → 2024-05-16 | Outpatient (CLI) | payer OTHER | LOC: M WUC 12:47 | PROVIDERS: ATTEND Family Medicine Addiction Medicine | DX: M51.360 Other intervertebral disc degeneration, lumbar region with discogenic back pain only (principal); M47.816 Spondylosis without myelopathy or radiculopathy, lumbar region ==

== ENCOUNTER → 2024-06-23 | Outpatient (CLI) | payer OTHER ==
[2024-06-23 11:50] LABS: BASO # 0.1 10^3/uL (0.0-0.2); BASO % 0.6 % (0.0-1.0); EOS # 0.1 10^3/uL (0.0-0.5); HEMATOCRIT 46.2 % (42.0-52.0); HEMOGLOBIN 15.6 g/dl (13.5-17.5); LYMPH # 2.3 10^3/uL (1.5-5.0); LYMPH % 29.2 % (24.0-44.0); MEAN CORPUSCULAR HEMOGLOBIN 30.2 pg (27.0-33.0); MEAN CORPUSCULAR HGB CONC 33.8 g/dl (32.0-36.5); MEAN CORPUSCULAR VOLUME 89.4 fl (80.0-96.0); MONO # 0.7 10^3/uL (0.0-0.8); MONO % 8.8 % (2.0-8.0); NEUTROPHILS # 4.8 10^3/uL (1.5-8.5); NEUTROPHILS % 60.1 % (36.0-66.0); PLATELET COUNT, AUTOMATED 195 10^3/uL (150-450); RED BLOOD COUNT 5.17 10^6/uL (4.30-6.10); WHITE BLOOD COUNT 7.9 10^3/uL (4.0-10.0)
[2024-06-23 12:01] LABS: ERYTHROCYTE SEDIMENTATION RATE 37 mm/hr (0-15)
[2024-06-23 12:39] LABS: ALBUMIN 3.7 G/DL (3.2-5.2); ALKALINE PHOSPHATASE 113 U/L (40-129); ALT/SGPT 44 U/L (7.0-40); AST/SGOT 21 U/L (<34); BILIRUBIN,TOTAL 0.4 MG/DL (0.3-1.2); BLOOD UREA NITROGEN 10 MG/DL (9-23); C REACTIVE PROTEIN QUANTITATIV 0.74 MG/DL (<1.0); CARBON DIOXIDE LEVEL 31 MMOL/L (20-31); CHLORIDE LEVEL 99 MMOL/L (98-107); CORTISOL AM 10.8 UG/DL (4.3-22.4); CREATININE FOR GFR 0.87 MG/DL (0.70-1.30); FERRITIN 143.4 NG/ML (10.5-307.3); GLOMERULAR FILTRATION RATE > 60.0 (>60); GLUCOSE, FASTING 305 MG/DL (60-100); GLUCOSE,RANDOM 305 MG/DL (LESS THAN 200); MAGNESIUM LEVEL 1.9 MG/DL (1.8-2.4); PROCALCITONIN 0.06 ng/ml; PROGESTERONE < 0.21 NG/ML (0.28-1.22); PROLACTIN 6.48 NG/ML (2.1-17.7); SODIUM LEVEL 140 MMOL/L (136-145); T UPTAKE 31.4 % (22.5-37.0); THYROID STIMULATING HORMONE 0.958 uIU/ML (0.55-4.78); THYROXINE (T4) 9.4 UG/DL (4.5-10.9); TOTAL 25(OH) VITAMIN D 17.1 NG/ML (20.0-100.0); TOTAL PROTEIN 7.7 G/DL (5.7-8.2)
[2024-06-24 10:57] LABS: PSA % FREE 67 % (calc) (>25); PSA FREE 0.2 ng/mL; PSA TOTAL 0.3 ng/mL (< OR = 4.0)
[2024-06-24 11:08] LABS: HAPTOGLOBIN 172 mg/dL (43-212)
[2024-06-24 13:11] LABS: HSV 2 IGG TYPE SPECIFIC < 0.90 index (<0.90)
== END ==
LOC: M WUC 10:10
PROVIDERS: ATTEND Nurse Practitioner Psychiatric/Mental Health
DX: F43.10 Post-traumatic stress disorder, unspecified (principal); F31.9 Bipolar disorder, unspecified; F98.8 Other specified behavioral and emotional disorders with onset usually occurring in childhood and adolescence

== ENCOUNTER → 2024-09-12 | Outpatient (CLI) | payer MEDICARE, OTHER ==
[~2024-09-12] MED LIST changes: +BUPR150T15 PO; -BUPR1TAB53 PO
[2024-09-12 16:05] LABS: BASO # 0.1 10^3/uL (0.0-0.2); BASO % 0.7 % (0.0-1.0); EOS % 0.5 % (0.0-3.0); HEMATOCRIT 45.3 % (42.0-52.0); HEMOGLOBIN 14.8 g/dl (13.5-17.5); LYMPH # 2.5 10^3/uL (1.5-5.0); LYMPH % 33.1 % (24.0-44.0); MEAN CORPUSCULAR HEMOGLOBIN 29.6 pg (27.0-33.0); MEAN CORPUSCULAR HGB CONC 32.7 g/dl (32.0-36.5); MEAN CORPUSCULAR VOLUME 90.6 fl (80.0-96.0); MONO # 0.7 10^3/uL (0.0-0.8); MONO % 9.2 % (2.0-8.0); NEUTROPHILS # 4.3 10^3/uL (1.5-8.5); NEUTROPHILS % 56.2 % (36.0-66.0); PLATELET COUNT, AUTOMATED 195 10^3/uL (150-450); WHITE BLOOD COUNT 7.7 10^3/uL (4.0-10.0)
[2024-09-12 16:27] LABS: ERYTHROCYTE SEDIMENTATION RATE 22 mm/hr (0-15)
[2024-09-12 16:30] LABS: ALT/SGPT 30 U/L (7.0-40); AST/SGOT 21 U/L (<34); BLOOD UREA NITROGEN 16 MG/DL (9-23); C REACTIVE PROTEIN QUANTITATIV 0.74 MG/DL (<1.0); CREATININE FOR GFR 0.94 MG/DL (0.70-1.30); GLOMERULAR FILTRATION RATE > 90.0 (>60)
== END ==
LOC: M PLALAB 12:59
PROVIDERS: ATTEND Physician Assistant Medical
DX: M06.09 Rheumatoid arthritis without rheumatoid factor, multiple sites (principal); Z79.899 Other long term (current) drug therapy

== ENCOUNTER → 2024-09-12 | Outpatient (CLI) | payer MEDICARE, OTHER | LOC: M PLAIMG 12:51 | PROVIDERS: ATTEND Nurse Practitioner Adult Health | DX: R91.8 Other nonspecific abnormal finding of lung field (principal); Z87.891 Personal history of nicotine dependence ==

== ENCOUNTER → 2024-11-10 | Outpatient (REF) | payer MEDICARE, OTHER ==
[2024-11-10 12:45] LABS: ALT/SGPT 35 U/L (7.0-40); AST/SGOT 31 U/L (<34); CALCIUM LEVEL 8.9 MG/DL (8.5-10.1); CARBON DIOXIDE LEVEL 29 MMOL/L (20-31); CHLORIDE LEVEL 101 MMOL/L (98-107); CHOLESTEROL LEVEL 121 MG/DL (<200); CHOLESTEROL RISK RATIO 3.33 (<5); CREATININE FOR GFR 0.99 MG/DL (0.70-1.30); GLOMERULAR FILTRATION RATE > 90.0 (>60); LDL CHOLESTEROL 44.7 MG/DL (<100); NON-HDL-C 84.7 MG/DL; POTASSIUM SERUM 3.9 MMOL/L (3.5-5.1); SODIUM LEVEL 141 MMOL/L (136-145); TRIGLYCERIDES LEVEL 200 MG/DL (<150)
[2024-11-10 13:08] LABS: ESTIMATED AVERAGE GLUCOSE 212.0 MG/DL (60-110)
== END ==
LOC: M LAB REF 12:12
PROVIDERS: ATTEND Family Medicine Addiction Medicine
DX: E11.9 Type 2 diabetes mellitus without complications (principal)

== ENCOUNTER → 2025-02-25 | Outpatient (REF) | payer MEDICARE, OTHER ==
[2025-02-25 13:34] LABS: ALT/SGPT 48 U/L (7.0-40); AST/SGOT 32 U/L (<34); CALCIUM LEVEL 9.3 MG/DL (8.5-10.1); CARBON DIOXIDE LEVEL 30 MMOL/L (20-31); CHLORIDE LEVEL 101 MMOL/L (98-107); CHOLESTEROL LEVEL 150 MG/DL (<200); CHOLESTEROL RISK RATIO 3.47 (<5); CREATININE FOR GFR 0.92 MG/DL (0.70-1.30); GLOMERULAR FILTRATION RATE > 90.0 (>60); LDL CHOLESTEROL 62.6 MG/DL (<100); NON-HDL-C 106.8 MG/DL; POTASSIUM SERUM 4.3 MMOL/L (3.5-5.1); SODIUM LEVEL 141 MMOL/L (136-145); TRIGLYCERIDES LEVEL 221 MG/DL (<150)
[2025-02-25 17:52] LABS: ESTIMATED AVERAGE GLUCOSE 200.0 MG/DL (60-110)
== END ==
LOC: M LAB REF 12:25
PROVIDERS: ATTEND Family Medicine Addiction Medicine
DX: E11.9 Type 2 diabetes mellitus without complications (principal)

== ENCOUNTER → 2025-04-06 | Outpatient (CLI) | payer MEDICARE, OTHER | LOC: M PLAIMG 13:07 | PROVIDERS: ATTEND Nurse Practitioner Adult Health | DX: R91.8 Other nonspecific abnormal finding of lung field (principal) ==